=== PATIENT | male | born 1970 | race Caucasian/White ===

== ENCOUNTER → 2017-02-05 | Outpatient (CLI) | payer OTHER ==
[~2017-02-05] MED LIST: ACET-1256 PO; ASPCH81X PO; ATOR-24 PO; CETI10TA84 PO; CYAN100020 PO; DIPH1TAB87 PO; FLUT0.15; FOLI1TAB7 PO; HYDR12.56 PO; WARF10TA PO
[2017-02-05 12:19] LABS: ESTIMATED AVERAGE GLUCOSE 140 mg/dl; HA1C FLAG Normal (Normal)
[2017-02-05 12:35] LABS: ALT/SGPT 31 U/L (12-78); AST/SGOT 20 U/L (15-37); BLOOD UREA NITROGEN 15 mg/dl (7-18); BUN/CREATININE RATIO 12.9 (10-20); CALCIUM 8.7 mg/dl (8.5-10.1); CARBON DIOXIDE 29 mmol/L (21-32); CHLORIDE 102 mmol/L (98-107); GLUCOSE 113 mg/dl (70-99); HDL CHOLESTEROL 41 mg/dl; POTASSIUM 3.5 mmol/L (3.5-5.1); SODIUM 139 mmol/L (136-145)
[2017-02-05 12:37] LABS: ALB/GLOB RATIO 1.3 (0.9-2); ALKALINE PHOSPHATASE 91 U/L (45-117); CHOLESTEROL 169 mg/dl (0-200); CHOLESTEROL/HDL RATIO 4.1; LDL CHOLESTEROL CALCULATED 86 mg/dl; TRIGLYCERIDES 208 mg/dl (0-150); VERY LOW DENSITY LIPOPROT CALC 42 mg/dl
== END | disposition home or self-care (01) ==
LOC: C.LABPVFM 07:29
PROVIDERS: ATTEND Family Medicine
DX: E78.5 Hyperlipidemia, unspecified (principal); D68.51 Activated protein C resistance; E72.11 Homocystinuria; R73.01 Impaired fasting glucose; I10 Essential (primary) hypertension

== ENCOUNTER → 2017-07-19 | Outpatient (CLI) | payer OTHER ==
[2017-07-19 13:25] LABS: ESTIMATED AVERAGE GLUCOSE 126 mg/dl; HA1C FLAG Normal (Normal)
== END | disposition home or self-care (01) ==
LOC: C.LABPVFM 07:15
PROVIDERS: ATTEND Family Medicine
DX: E11.9 Type 2 diabetes mellitus without complications (principal)

== ENCOUNTER 2017-08-17 06:16 | Inpatient (IN) | payer OTHER ==
[2017-08-03 08:59] VITALS: BMI 44.0
--- NOTE | 2017-08-03 09:32 | PAT Medication Instructions ---
Service Date Aug 03, 2017. Current Home Medication List Acetaminophen (Tylenol), 500 MG PO Q6H PRN for Pain Aspirin (Aspirin Chewable), 81 MG PO QAM Atorvastatin (Lipitor), 40 MG PO QAM Cetirizine (Zyrtec), 10 MG PO QAM Cyanocobalamin (Vitamin B12), 1 TAB PO QAM Diphenhydramine Hcl (Benadryl Allergy), 25 MG PO Q6H PRN for ALLERGIC REACTION Fluticasone Propionate (Nasal) (Flonase Allergy Relief), 2 SPRAYS NA QPM PRN for PRN Folic Acid (Folvite), 1 TAB PO QAM Hydrochlorothiazide (Hctz), 12.5 MG PO QAM Warfarin Sodium (Coumadin), 10 MG PO 4XWK Warfarin Sodium (Coumadin), 5 MG PO 3XWK Medication Instructions For Your Scheduled Surgery - Instructions per Coumadin clinic: Warfarin Sodium (Coumadin), 10 MG PO 4XWK Warfarin Sodium (Coumadin), 5 MG PO 3XWK - Hold the following medications the morning of surgery: Folic Acid (Folvite), 1 TAB PO QAM Hydrochlorothiazide (Hctz), 12.5 MG PO QAM Cetirizine (Zyrtec), 10 MG PO QAM Cyanocobalamin (Vitamin B12), 1 TAB PO QAM Diphenhydramine Hcl (Benadryl Allergy), 25 MG PO Q6H PRN for ALLERGIC REACTION - Take the following medications the morning of surgery with a sip of water OTHERWISE NOTHING TO EAT OR DRINK AFTER MIDNIGHT:: Aspirin (Aspirin Chewable), 81 MG PO QAM Atorvastatin (Lipitor), 40 MG PO QAM Acetaminophen (Tylenol), 500 MG PO Q6H PRN for Pain (may take if needed up to 4 hours prior to surgery) Fluticasone Propionate (Nasal) (Flonase Allergy Relief), 2 SPRAYS NA QPM PRN - Take the following medications as scheduled the night before surgery: Fluticasone Propionate (Nasal) (Flonase Allergy Relief), 2 SPRAYS NA QPM PRN Acetaminophen (Tylenol), 500 MG PO Q6H PRN for Pain Diphenhydramine Hcl (Benadryl Allergy), 25 MG PO Q6H PRN for ALLERGIC REACTION If you have any questions please call us at [phone] or [phone] or [phone]
--- NOTE | 2017-08-03 10:07 | DIAGNOSTIC IMAGING REPORT ---
CHEST 2 VIEWS ROUTINE CLINICAL HISTORY: PAT preoperative evaluation COMPARISON STUDY: 11/01/2015 FINDINGS: The bones soft tissues and hemidiaphragms are normal. The cardiomediastinal silhouette is normal. The lungs are clear. The pulmonary vasculature is normal. IMPRESSION: Negative chest. The above report was generated using voice recognition software. It may contain grammatical, syntax or spelling errors. Electronically signed by: Juan Colin M.D. 08/03/2017 10:06 AM Dictated Date/Time: 08/03/2017 10:05 AM
[2017-08-03 11:42] LABS: BASO % 0.3 %; BASO ABS # 0.02 K/uL (0-0.2); COMPLETE YES; EOS % 0.9 %; HEMATOCRIT 46.3 % (42-52); IG% 0.3 %; LYMPH % 16.4 %; LYMPH ABS # 1.28 K/uL (1.2-3.4); MEAN CELL VOLUME 97.9 fL (80-100); MEAN CORPUSCULAR HEMOGLOBIN 33.2 pg (25-34); MEAN CORPUSCULAR HGB CONC 33.9 g/dl (32-36); MONO % 6.1 %; PLATELET COUNT 215 K/uL (130-400); RED BLOOD COUNT 4.73 M/uL (4.7-6.1); WHITE BLOOD COUNT 7.81 K/uL (4.8-10.8)
[2017-08-03 11:48] LABS: BLOOD UREA NITROGEN 22 mg/dl (7-18); BUN/CREATININE RATIO 17.8 (10-20); CALCIUM 8.5 mg/dl (8.5-10.1); CARBON DIOXIDE 29 mmol/L (21-32); CHLORIDE 105 mmol/L (98-107); CREATININE 1.24 mg/dl (0.60-1.40); GLUCOSE 127 mg/dl (70-99); POTASSIUM 3.9 mmol/L (3.5-5.1); SODIUM 137 mmol/L (136-145)
[2017-08-03 11:49] LABS: C-REACTIVE PROTEIN < 0.29 mg/dl (0-0.29)
[2017-08-03 11:58] LABS: INR 3.7 (0.9-1.1); PARTIAL THROMBOPLASTIN RATIO 1.8; PROTHROMBIN TIME (PATIENT) 42.1 SECONDS (9.0-12.0)
--- NOTE | 2017-08-11 09:44 | HISTORY & PHYSICAL EXAMINATION ---
DATE OF ADMISSION: 08/17/2017 CHIEF COMPLAINT: Right hip pain. HISTORY OF PRESENT ILLNESS: This 47-year-old gentleman well known to me from treatment of his left hip with arthroplasty back in 2013. He is now 3 years out and done well. This was done for avascular necrosis. He has a known history of right hip avascular necrosis as well. We have been managing this with medicines and injections over time. He really cannot take oral anti-inflammatories due to his Coumadin use. Pain has been gradually worse, particularly over the past 6-7 months. The shots have not helped much. He has got groin pain. He has difficulty walking. If he walks 1 day the next day he really pays for it. He describes groin pain, thigh pain, and knee pain. Of note, the patient has a Factor V Leiden abnormality and patent foramen ovale. He has a history of stroke and he is on Coumadin. His Coumadin is managed by the Coumadin clinic. PAST MEDICAL HISTORY: 1. Factor V Leiden abnormality. 2. Patent foramen ovale, status post a mini stroke without residual sequelae. 3. Sleep apnea. 4. Obesity with a BMI of 44. 5. Anemia. 6. Lyme disease. 7. Diabetes. PAST SURGICAL HISTORY: Include: 1. Left hip replacement done 06/30/2017. 2. Right knee arthroscopy. 3. Right knee ACL reconstruction. 4. Sinus surgery. ALLERGIES: DYES. CURRENT MEDICINES: Include: 1. Coumadin 5 mg Sunday, Sunday, Sunday and 10 mg the other 4 days. 2. Hydrochlorothiazide. 3. Cholesterol pill. 4. Vitamin B12. 5. Zyrtec. 6. Benadryl. 7. Tylenol. SOCIAL HISTORY: A 47-year-old male. He is . He does smoke. He has significant alcohol use as well and says he drinks about a half a gallon of rum per week. FAMILY HISTORY: Negative for diabetes or blood clots. REVIEW OF SYSTEMS: Significant for diabetes and Factor V Leiden abnormality and history of TIAs in the past without residual sequelae. Denies any current chest pain or shortness of breath. PHYSICAL EXAMINATION: GENERAL: Reveals a healthy, pleasant, middle-aged male. He looks to be in pretty good health. HEAD, EYES, EARS, NOSE, AND THROAT: Exam is benign. NECK: Supple. No lymphadenopathy. LUNGS: Clear to auscultation. HEART: Has a regular rate and rhythm. ABDOMEN: Soft, nontender and nondistended. EXTREMITY EXAMINATION: Grossly neurovascularly intact except as follows: Examination of the right hip and leg reveals the patient walks with a slightly antalgic gait. Leg lengths clinically appear pretty equal. He does have pain with any type of hip motion. He can internally rotate to about 10 degrees, external rotation 25 degrees. This causes him pain. Negative straight leg raise. X-RAYS: X-rays of the right hip were reviewed. It shows avascular necrosis of his femoral head. He does have some collapse of the femoral head. Joint space is still pretty well maintained. Bone density looks good. He does have subchondral fracture. ASSESSMENT: A 47-year-old gentleman 3 years out from left total hip replacement with right hip pain and discomfort secondary to AVN. His disease has progressed and it is limiting his activities. PLAN: We talked about treatment. He would like to have his right hip replaced. We will take her to the right total hip replacement. The risks and benefits of this procedure were explained to the patient including but not limited to DVT, PE, , infection, neurological injury, vascular injury, bleeding problem, pain, limited range of motion, stiffness of motion relieve symptoms, incomplete relief of symptoms, need for further surgery in the future, fracture, leg length inequality, nerve palsy, dislocation, etc. The patient understands and desires to proceed. Informed consent was obtained. His Coumadin is going to be managed by the Coumadin clinic. He knows to stop his Coumadin 5 days preop and the Lovenox 24 hours preop. We will likely start him on prophylactic dose of Lovenox 24 hours postoperatively and start him on Coumadin right away with a 15 mg bolus as recommended by the Coumadin clinic. He will need stat PT and INR the morning of surgery. He may need DT prophylaxis due to his significant alcohol intake. He may need a nicotine patch as well. He will plan to be discharged to home. His can help him along with home health.
[2017-08-17] VITALS (11 sets, daily range): BP systolic 103–126; BP diastolic 70–85; PULSE 68–79; TEMP 36.4–37.5; O2SAT 94–100; Ht 180.3 cm; Wt 143.0 kg
[~2017-08-17] VITALS: Ht 180.3 cm; Wt 143.0 kg
[~2017-08-17 06:16] MED LIST changes: +ACETAMINOPHEN 500 MG TAB PO SCH; +CEFAZOLIN 3000MG IV PUSH 15 ML IV SCH; +FAMOTIDINE 20 MG TAB PO SCH; -FOLI1TAB7 PO; +FOLI1TAB8 PO; +LACTATED RINGER'S 1000ML 1,000 ML IV SCH; +LACTATED RINGER'S 1000ML 500 ML IV ONE; +LACTATED RINGER'S 1000ML IV SCH; +METOCLOPRAMIDE HCL 10 MG TAB PO SCH; +SCOPOLAMINE 1.5 MG TDSY TD SCH; +TRANEXAMIC ACID INJ 1,000 MG in SYRINGE 0 ML IV SCH
[2017-08-17] MEDS ORDERED: BUPIVACAINE 0.5 % 5 MG/1 ML PF 10ML VIAL ONE (06:38)
[2017-08-17] MEDS ORDERED: LVNIS150 (06:42)
--- NOTE | 2017-08-17 06:42 | History & Physical Bridge Note ---
H&P Re-Evaluation Bridge Note: I have examined the patient, reviewed the History & Physical and in the interval since the performance of the History & Physical I have noted the following changes of clinical significance: No changes noted
[2017-08-17] MEDS ORDERED: GABAPENTIN 300 MG CAP PO ONE (07:07)
[2017-08-17 07:14] LABS: PROTHROMBIN TIME (PATIENT) 10.3 SECONDS (9.0-12.0)
[2017-08-17] MEDS ORDERED: MIDAZOLAM HCL 1 MG/ML 2ML VIAL ONE ×3 (07:59→10:19)
[2017-08-17] MEDS ORDERED: MORPHINE SULFATE PF 2MG/2ML SYR ONE (08:30)
[2017-08-17] MEDS ORDERED: BACITRACIN 50000 UNIT VIAL ONE (08:47)
[2017-08-17] MEDS ORDERED: BUPIVACAINE/EPINEPHRINE 0.5% MPF 1:200,000 30 ML VIAL ONE (08:47)
[2017-08-17] MEDS ORDERED: FENTANYL CITRATE INJ 50 MCG/1 ML 2 ML VIAL ONE (08:49)
[2017-08-17] MEDS ORDERED: SODIUM CHLORIDE 0.9% 1000ML 1,000 ML IV PRN (09:21)
[2017-08-17] MEDS ORDERED: LACTATED RINGER'S 1000ML 500 ML IV PRN (09:21)
[2017-08-17] MEDS ORDERED: NALOXONE HCL INJ 1 MG in SODIUM CHLORIDE 0.9% 1000ML 1,000 ML IV PRN (09:21)
[2017-08-17] MEDS ORDERED: NALOXONE HCL INJ 0.08 MG in SYRINGE 1.8 ML IV PRN (09:21)
[2017-08-17] MEDS ORDERED: ONDANSETRON INJ 2 MG/ML 2 ML VIAL IV PRN (09:30)
[2017-08-17] MEDS ORDERED: KETOROLAC TROMETHAMINE 30 MG/ML VIAL IV. PRN (09:30)
[2017-08-17] MEDS ORDERED: EpHEDrine SULFATE INJ 50 MG/ML AMP IV PRN (09:30)
[2017-08-17] MEDS ORDERED: MoRPHine SULFATE 2 MG/ML CARP IV PRN (09:30)
[2017-08-17] MEDS ORDERED: DiphenhydrAMINE HCL 50 MG/ML VIAL IV PRN (09:30)
[2017-08-17] MEDS ORDERED: NO NARCOTICS OR SEDATIVES SCH (09:30)
[2017-08-17] MEDS ORDERED: NALBUPHINE HCL INJ 10 MG/ML AMP IV PRN (09:30)
[2017-08-17] MEDS ORDERED: MoRPHine SULFATE PF 1 MG/ML 10 ML AMP/VIAL EPI PRN (09:30)
[2017-08-17] MEDS ORDERED: NALOXONE HCL 0.4 MG/1 ML VIAL/CARP IV PRN (09:30)
[2017-08-17] MEDS ORDERED: ONDANSETRON INJ 2 MG/ML 2 ML VIAL ONE (10:02)
[2017-08-17] MEDS ORDERED: PROPOFOL IV EMULSION 10 MG/ML 20 ML VIAL IV ONE (10:02)
[2017-08-17] MEDS ORDERED: PHENYLEPHRINE 100MCG/ML 5ML SYR ONE (10:14)
[2017-08-17] MEDS ORDERED: FLUTICASONE PROPIONATE NA SPR 16 GM BTL PRN (11:00)
[2017-08-17] MEDS ORDERED: CEFAZOLIN IV 2,000 MG in DEXTROSE 5% 50ML 50 ML IV SCH (11:00)
[2017-08-17] MEDS ORDERED: MAGNESIUM HYDROXIDE SUSP 30 ML UDC PO PRN (11:00)
[2017-08-17] MEDS ORDERED: SILVER SULFADIAZINE 1% CR 50 GM JAR EXT PRN (11:00)
[2017-08-17] MEDS ORDERED: TAMSULOSIN HCL 0.4 MG CAP PO PRN (11:00)
[2017-08-17] MEDS ORDERED: [UNRECOGNIZED DRUG - REMARK] PO PRN (11:00)
[2017-08-17] MEDS ORDERED: ALUMINUM/MAGNESIUM/SIMETH (MAALOX MAX) 30 ML UDC PO PRN (11:00)
[2017-08-17] MEDS ORDERED: BISACODYL 10 MG SUPP PR PRN (11:00)
[2017-08-17] MEDS ORDERED: METOCLOPRAMIDE HCL INJ 5 MG/ML 2 ML VIAL IV PRN (11:00)
--- NOTE | 2017-08-17 11:00 | [facility] Post Operative Brief Note ---
Immediate Operative Summary Operative Date Aug 17, 2017. Pre-Operative Diagnosis Right Hip Pain Secondary to Avascular Necrosis Post-Operative Diagnosis Right Hip Pain Secondary to Avascular Necrosis Procedure(s) Performed Right Total Hip Arthroplasty--Uncemented Surgeon Dr. Paiz Automated Teller Manager Surgeon(s) BENEDICTO Shen Estimated Blood Loss 300 ml Findings Right Hip AVN Fluids (cc crystalloids) 1800 cc Specimens A. Right Femoral Head Drains None Anesthesia Spinal Complication(s) None Disposition Recovery Room / PACU
--- NOTE | 2017-08-17 11:48 | DIAGNOSTIC IMAGING REPORT ---
R PELVIS/UNILATERAL HIP 1 VIEW CLINICAL HISTORY: IN PACU - A/P PELVIS and LATERAL HIP INCLUDING ALL OF IMPLANT COMPARISON: None. DISCUSSION: Bilateral total hip arthroplasties. Good contact between prosthetic and underlying bone. Left hip arthroplasties pre-existing. No evidence for acetabular protrusion. There is no evidence for soft tissue swelling. IMPRESSION: Anatomic alignment status post total right hip arthroplasty. Pre-existing total left hip arthroplasty. The above report was generated using voice recognition software. It may contain grammatical, syntax or spelling errors. Electronically signed by: Juan Colin M.D. 08/17/2017 11:47 AM Dictated Date/Time: 08/17/2017 11:46 AM
--- NOTE | 2017-08-17 12:07 | Anesthesiology Progress Note ---
Anesthesia Post Op Note Date & Time Aug 17, 2017 at 12:07 Vital Signs Pain Intensity: 0 Vital Signs Past 12 Hours Date Time Temp Pulse Resp B/P (MAP) Pulse Ox O2 Delivery O2 Flow Rate FiO2 08/17/17 11:47 36.8 08/17/17 11:45 73 13 98 08/17/17 11:45 75 13 08/17/17 11:42 118/68 08/17/17 11:40 81 14 97 08/17/17 11:40 78 14 08/17/17 11:37 120/68 08/17/17 11:35 65 14 08/17/17 11:35 65 14 99 08/17/17 11:31 113/69 08/17/17 11:30 69 21 08/17/17 11:30 70 21 98 08/17/17 11:26 120/61 08/17/17 11:25 74 21 98 08/17/17 11:25 77 21 08/17/17 11:21 117/78 08/17/17 11:20 68 14 08/17/17 11:20 67 14 98 08/17/17 11:16 111/69 08/17/17 11:15 71 16 08/17/17 11:15 70 16 98 08/17/17 11:11 117/72 08/17/17 11:10 78 19 08/17/17 11:10 76 19 99 08/17/17 11:07 117/68 08/17/17 11:05 79 16 08/17/17 11:05 80 16 97 08/17/17 11:01 121/76 08/17/17 11:00 80 16 94 08/17/17 11:00 81 16 08/17/17 11:00 36.8 80 16 121/76 95 Nasal Cannula 3 08/17/17 06:45 94 Room Air Notes Mental Status: alert / awake / arousable, participated in evaluation Pt Amnestic to Procedure: Yes Nausea / Vomiting: adequately controlled Pain: adequately controlled Airway Patency, RR, SpO2: stable & adequate BP & HR: stable & adequate Hydration State: stable & adequate Neuraxial Anesthesia: was administered, sensory block is resolving Anesthetic Complications: no major complications apparent
--- NOTE | 2017-08-17 12:20 | OPERATIVE REPORT ---
DATE OF OPERATION: 08/17/2017 SURGEON: Dr. Juan Paiz. SOLDERER BARREL RIBS: BENEDICTO Garcia PREOPERATIVE DIAGNOSIS: Right hip avascular necrosis with secondary degenerative joint disease. POSTOPERATIVE DIAGNOSIS: Same. PROCEDURE PERFORMED: Right uncemented ceramic on highly cross-linked polyethylene total hip arthroplasty. COMPLICATIONS: None. ESTIMATED BLOOD LOSS: 300 mL. FLUID REPLACEMENT: 1800 mL crystalloid fluid replacement. ANESTHESIA: Spinal. DRAINS: None. SPECIMENS: Right femoral head sent for pathology. OPERATIVE INDICATIONS: The patient is a 47-year-old gentleman who has a history of Factor V Leiden abnormality as well as the patent foramen ovale with a history of some strokes in the past. He has a known history of avascular necrosis and underwent a left total hip replacement 3 years ago. He has done well from that. He has developed persistent and progressive pain in his right hip. He has known avascular necrosis even from the time of his previous surgery. X-rays suggested collapse of the femoral head. The patient failed conservative treatment and elected to proceed with operative treatment. OPERATIVE FINDINGS: Operative findings revealed a moderate sized joint effusion. The articular surface looked fairly well preserved. There was one area where it looked like there was some collapse of the femoral head, although not obvious. There were some anterior osteophytes off the acetabulum. Moderate synovitis. OPERATIVE IMPLANTS: Operative implants consisted of: 1. Biomet G7 size 58-mm acetabular shell. 2. A 6.5 cancellous acetabular screws, 1 at 25 mm in length, 1 at 35 mm in length. 3. An apex hole eliminator. 4. Highly cross-linked polyethylene liner with a 58 mm outer diameter, 36 mm inner diameter with a saravia placed inferior and posterior. 5. A DePuy size 15 small AML femoral stem. 6. A +8.5/36 mm ceramic articular ball. OPERATIVE PROCEDURE: The patient was taken to the operating room, identified and placed on the operating table in supine position. All contact areas were appropriately padded. IV antibiotics were provided by anesthesia team. A spinal anesthetic had been implemented in the holding area. Brown catheter was placed in sterile fashion. The patient was then placed in the left lateral decubitus position. An axillary roll was placed. Stlberg hip positioner was used for positioning. All contact areas were meticulously padded and the right hip and leg were then prepped and draped in the usual sterile fashion. A posterolateral approach to the right hip was then performed through a curvilinear incision centered over the greater trochanter. Sharp dissection was carried through the subcutaneous tissue down to the level of the IT band and gluteal fascia. The IT band and gluteal fascia were incised longitudinally in line with skin incision. The underlying greater trochanteric bursa was excised. The piriformis and external rotators and the posterior capsule were then taken off the posterior aspect of the hip in a single layer. Great care was taken throughout the procedure to protect the sciatic nerve at all times. Hip was internally rotated and dislocated. Femoral neck osteotomy cut was made, final cut about 17 mm above the lesser trochanter. Femoral head was removed and sent for pathology. The femur was retracted anteriorly. Attention was then drawn to the acetabulum. The acetabulum labrum was excised. The pulvinar fat was excised. I used a curette to curette out some of the cartilage. Sequential reaming of the acetabulum was then performed beginning with a size 51 and progressing up to 57. A 58 mm Biomet G7 acetabular shell was then placed in about 40 degrees of lateral opening and 20 degrees of anteversion. I really worked hard to try and get this in an acceptable position due to his large size. It was fixed with two 6.5 cancellous acetabular screws. An anterior osteophyte was removed. A trial liner was placed. Attention was then drawn to the femur. The proximal femur was entered with a cookie cutter followed by canal finder and lateralizing reamer. Sequential reaming of the femur was then performed beginning with a size 10 and progressing up to good chatter at 14.5. I broached beginning with a size 12 small and progressing up to a 15 small. We got good metaphyseal fit. We then trialed the hip. The hip was fully stable in full extension and external rotation, flexion to 90 degrees, internal rotation to about 40 degrees. It was most unstable in terminal flexion, and therefore I did place a saravia very inferior and posterior to maximize stability in flexion. I elected to use a +8.5 head to maximize soft tissue tension and equalize leg lengths. We placed these implants. All trial implants were removed. An apex hole eliminator was placed. Highly cross-linked polyethylene liner with a saravia placed inferior and posterior was placed. A 15 small stature AML femoral stem was placed. A +8.5/36 mm ceramic articular ball was placed. Hip was located and once again found to be stable. Attention was then drawn toward closing. The wound was irrigated with copious amounts of pulsatile lavage solution. I did inject locally with 60 mL of 0.5% Marcaine with epinephrine. The posterior capsule and external rotators were repaired as a single layer with #2 Ti-Cron suture through drill holes in the posterior trochanter with #2 Ti-Cron suture. The IT band and gluteal fascia was then closed with #1 PDS suture in running fashion. The subcutaneous tissues were then closed with 2 layers, the deep layer #2 Vicryl suture and the subcutaneous tissue with 2-0 Dexon suture in a buried interrupted fashion. Skin was closed skin lisy. Leg was then cleaned and dried and a sterile dressing of Xeroform, 4 x 4, ABD pad and foam tape was applied. The patient then transferred to the recovery room in stable condition. The patient tolerated the procedure without complications. All needle and sponge counts were correct at the end of operation. I attest to the content of the Intraoperative Record and any orders documented therein. Any exception s are noted below.
[2017-08-17] MEDS ORDERED: GLUCOSE 40% GEL 15 GM TUBE PO PRN (13:15)
[2017-08-17] MEDS ORDERED: DEXTROSE 50% 50 ML SYR IV PRN (13:15)
[2017-08-17] MEDS ORDERED: GLUCAGON FOR INJ 1 MG VIAL SQ PRN (13:15)
[2017-08-17] MEDS ORDERED: GLUCOSE 10 TABS/TUBE PO PRN (13:15)
[2017-08-17] MEDS: FERROUS GLUCONATE 324 MG TAB PO SCH ×3 (13:42→17:30)
[2017-08-17] MEDS: SODIUM CHLORIDE 0.9% 1000ML 1,000 ML IV SCH ×2 (13:43→18:41)
[2017-08-17] MEDS: ACETAMINOPHEN 500 MG TAB PO SCH ×2 (13:43→21:31)
[2017-08-17] MEDS: NICOTINE 14 MG/24 HR TDSY TD SCH (13:46)
[2017-08-17] MEDS: CHECK SCOPOLAMINE PATCH PLACEMENT SCH (15:50)
[2017-08-17] MEDS ORDERED: WARFARIN SOD 10 MG TAB PO ONE (16:00)
--- NOTE | 2017-08-17 16:29 | PROGRESS NOTE ---
DATE: 08/17/2017 SUBJECTIVE: A 47-year-old male postop from a right total hip replacement. He is doing well. Not having much pain. No chest pain or shortness of breath. Not feeling dizzy or lightheaded. OBJECTIVE: VITAL SIGNS: Temperature is 36.4. Vital signs stable. GENERAL: Physical examination reveals a pleasant middle-aged male. He is sitting up with legs dangling over the edge of the bed and looks quite comfortable. LUNGS: Clear to auscultation. HEART: Regular rate and rhythm. ABDOMEN: Soft, nontender, and nondistended. EXTREMITIES: Grossly neurovascularly intact except as follows: Examination of the right hip and leg reveals the dressing to be clean, dry and intact. Hip is located. He can dorsiflex and plantarflex his foot appropriately. He is neurologically intact. X-RAYS: X-rays of the right hip from recovery room were reviewed. It shows a right uncemented total hip arthroplasty. Components looked to be in good position. No signs of problems. ASSESSMENT: A 47-year-old gentleman postop from a right hip replacement, doing pretty well. Pain is controlled. Hip is located. He is neurologically intact. PLAN: 1. DVT prophylaxis including thigh-high TEDs, SCDs, and we will start him back on his Coumadin tonight. We will start him on prophylactic dose of Lovenox 24 hours postoperatively until he is therapeutic on his Coumadin. 2. PT/OT. Weightbear as tolerated. Right total hip protocol. 3. Pain control. Doing well with current pain regimen. 4. IV antibiotics x24 hours. 5. Disposition: Plan to discharge to home likely with some home health once adequately recovered. NIKI
[2017-08-17] MEDS ORDERED: NURSING VERBAL MED ORDER ONE (16:45)
[2017-08-17] MEDS: INSULIN HUMAN REGULAR SC SCH ×2 (17:34→21:34)
[2017-08-17] MEDS: CEFAZOLIN IV 2,000 MG in SYRINGE 0 ML IV SCH (18:16)
[2017-08-17] MEDS: PREGABALIN 75 MG CAP PO SCH (20:18)
[2017-08-17] MEDS: DOCUSATE SODIUM 100 MG CAP PO SCH (20:19)
[2017-08-17] MEDS: SENNA 8.6 MG TAB PO SCH (20:19)
[2017-08-18] VITALS (7 sets, daily range): BP systolic 104–121; BP diastolic 69–75; PULSE 63–85; TEMP 37.1–37.6; O2SAT 95–97
[2017-08-18] MEDS: CHECK SCOPOLAMINE PATCH PLACEMENT SCH ×4 (00:15→23:05)
[2017-08-18] MEDS: SODIUM CHLORIDE 0.9% 1000ML 1,000 ML IV SCH (01:29)
[2017-08-18] MEDS: CEFAZOLIN IV 2,000 MG in SYRINGE 0 ML IV SCH (01:29)
[2017-08-18] MEDS ORDERED: MoRPHine SULFATE 2 MG/ML CARP IV PRN (02:00)
[2017-08-18] MEDS ORDERED: ZOLPIDEM TARTRATE 5 MG TAB PO PRN (02:00)
[2017-08-18] MEDS ORDERED: DC INTRASPINAL MORPHINE ONE (02:00)
[2017-08-18] MEDS ORDERED: ONDANSETRON INJ 2 MG/ML 2 ML VIAL IV PRN (02:00)
[2017-08-18] MEDS ORDERED: DiphenhydrAMINE HCL 50 MG/ML VIAL IV PRN (02:00)
[2017-08-18] MEDS: OXYCODONE HCL IR 5 MG TAB (IMMEDIATE RELEASE) PO PRN ×2 (05:55→20:52)
[2017-08-18] MEDS: ACETAMINOPHEN 500 MG TAB PO SCH ×4 (05:55→23:07)
[2017-08-18] MEDS: KETOROLAC TROMETHAMINE 30 MG/ML VIAL IV. SCH ×4 (05:58→23:09)
[2017-08-18] MEDS ORDERED: NURSING VERBAL MED ORDER ONE (07:45)
[2017-08-18 07:53] LABS: BASO % 0.3 %; BASO ABS # 0.02 K/uL (0-0.2); COMPLETE YES; EOS % 2.3 %; HEMATOCRIT 35.1 % (42-52); IG% 0.4 %; LYMPH % 13.5 %; LYMPH ABS # 1.06 K/uL (1.2-3.4); MEAN CELL VOLUME 98.3 fL (80-100); MEAN CORPUSCULAR HEMOGLOBIN 32.2 pg (25-34); MEAN CORPUSCULAR HGB CONC 32.8 g/dl (32-36); MEAN PLATELET VOLUME 10.5 fL (7.4-10.4); MONO % 15.9 %; NEUT % 67.6 %; PLATELET COUNT 141 K/uL (130-400); RED BLOOD COUNT 3.57 M/uL (4.7-6.1); WHITE BLOOD COUNT 7.88 K/uL (4.8-10.8)
--- NOTE | 2017-08-18 07:53 | PROGRESS NOTE ---
DATE: 08/18/2017 SUBJECTIVE: A 47-year-old gentleman postop day 1 from a right total hip replacement done for AVN. He is doing well. Pain is controlled. No chest pain or shortness of breath. Not feeling dizzy or lightheaded. OBJECTIVE: VITAL SIGNS: Temperature 37.1. Vital signs stable. PHYSICAL EXAMINATION: GENERAL: Reveals a healthy, pleasant, middle-aged male. He is sitting up in bed and looks pretty comfortable. LUNGS: Clear to auscultation. HEART: Regular rate and rhythm. ABDOMEN: Soft, nontender, nondistended. EXTREMITIES: Grossly neurovascularly intact except as follows: Examination of the right hip and leg reveals the leg to be well aligned. Dressing is clean, dry and intact. Thigh is soft and supple. Hip is located. He is neurologically intact. PLAN: 1. DVT prophylaxis including thigh-high TEDs, SCDs, and Coumadin. He will get 15 mg of Coumadin today. We will start him on a prophylactic dose of Lovenox until his Coumadin is more therapeutic. 2. PT/OT. Weight bear as tolerated. Right total hip protocol. 3. Pain control, doing pretty well with current pain regimen. 4. Disposition: Plan to discharge to home with some home health once adequately recovered.
[2017-08-18 07:57] LABS: PROTHROMBIN TIME (PATIENT) 10.9 SECONDS (9.0-12.0)
[2017-08-18] MEDS: CETIRIZINE HCL 10 MG TAB PO SCH (08:27)
[2017-08-18] MEDS: NICOTINE 14 MG/24 HR TDSY TD SCH (08:27)
[2017-08-18] MEDS: DOCUSATE SODIUM 100 MG CAP PO SCH ×2 (08:27→20:48)
[2017-08-18] MEDS: MULTIVITAMIN TAB PO SCH (08:27)
[2017-08-18] MEDS: ASPIRIN 81 MG ECTAB PO SCH (08:27)
[2017-08-18] MEDS: CYANOCOBALAMIN 500 MCG TAB (VIT B-12) PO SCH (08:27)
[2017-08-18] MEDS: FERROUS GLUCONATE 324 MG TAB PO SCH ×3 (08:27→18:06)
[2017-08-18] MEDS: ATORVASTATIN 40 MG TAB PO SCH (08:27)
[2017-08-18] MEDS: HYDROCHLOROTHIAZIDE 25 MG TAB PO SCH (08:29)
[2017-08-18 08:31] LABS: BUN/CREATININE RATIO 14.2 (10-20); CALCIUM 7.7 mg/dl (8.5-10.1); CREATININE 1.07 mg/dl (0.60-1.40); POTASSIUM 3.7 mmol/L (3.5-5.1)
[2017-08-18] MEDS: PREGABALIN 75 MG CAP PO SCH ×2 (08:33→20:48)
[2017-08-18] MEDS: INSULIN HUMAN REGULAR SC SCH ×4 (08:34→20:47)
[2017-08-18] MEDS: PANTOprazole SOD 40 MG TAB PO SCH (09:07)
[2017-08-18] MEDS: ENOXAPARIN 30 MG/0.3 ML SYR SQ SCH ×2 (12:41→23:09)
[2017-08-18] MEDS ORDERED: WARFARIN SOD 10 MG TAB PO ONE ×2 (16:00)
[2017-08-18] MEDS ORDERED: RXC5 PO (20:34)
[2017-08-18] MEDS ORDERED: ACET-24 PO (20:34)
--- NOTE | 2017-08-18 20:38 | Discharge Instructions ---
Discharge Instructions Date of Service Aug 18, 2017. Admission Reason for Admission: Right Hip Degenerative Joint Disease Discharge Discharge Diagnosis / Problem: Right Hip Replacement Discharge Goals Goal(s): Decrease discomfort, Improve function, Increase independence, Improve disease control, Therapeutic intervention Activity Recommendations Activity Limitations: per Instructions/Follow-up section (Total Hip Precautions ) Weightbearing Status: Right weightbearing . Instructions / Follow-Up Instructions / Follow-Up ACTIVITY RECOMMENDATIONS: Physical Therapy: * Aggressive physical therapy is not usually needed. You will learn to take care of yourself safely and walk. * Follow the "Hip Precautions Instructions." * In some cases, the social security benefits interviewer at the hospital will arrange to have a therapist come to your house for the first couple of weeks to help you learn these skills. * You need to practice on your own or with the help of a family member as needed. * When you learn these skills, most of the therapy can be done on your own. Home Exercise: * You were shown a series of exercises in the hospital. Do these exercises three to four times each day including the exercises you were shown in physical therapy. Walking: * Get up and walk several times each day. For the first four weeks, try not to stand or walk for more than one hour at a time. If you do stand or walk for more than one hour, you will not hurt anything, but your leg will likely swell. * As you feel comfortable, you may change from the walker or crutches to a cane and then to independent walking. MEDICATIONS: New Medicine: * You will likely be taking one or more of these medicines: 1. Oxycodone - Take, as directed, when you need it, every four to six hours to control your pain. 2. Coumadin - Thins your blood to lessen the chance of forming a blood clot. * The most common side effects of pain medicine and iron are nausea and constipation. If nausea or constipation is too much of a problem or if you have any questions about your new medicines or doses, call [facility] at . We will try to help you manage these issues. VERY IMPORTANT TO READ AND REVIEW" Pain: * The immediate post-operative period after hip replacement surgery is often quite painful. * You are given a prescription for pain medicine. You should take it, as directed, when you need it, especially before physical therapy and before going to bed. Pain that interferes with sleep is very common and can last several months. * You will likely need pain medicine for the first two to four weeks. It will not stop all of the pain. The pain will lessen and as you feel better, you may change to milder pain medicine such as Tylenol. * The most common side effects of pain medicine are nausea and constipation, so don't take more than you need. SPECIAL CARE INSTRUCTIONS: TEDs/Elastic Stockings: * The white elastic stockings help limit swelling and prevent blood clots from forming in your legs. The more you wear them, the more they work. * Wear them for six weeks. Prevention of Infection: * Take antibiotics one hour before any dental cleaning, dental work, urological procedure, gastrointestinal procedure or any invasive surgery in order to prevent your new joint from getting infected. * You may get the antibiotics from the doctor performing the procedure or you may call our office at before and we will call in a prescription to the pharmacy of your choice. Things to Watch For: * Drainage from the incision site that occurs more than one week after your surgery. * Severely increased leg pain or swelling. * Increased redness at the incision site. * Fever above 102 degrees Fahrenheit. * Unusual chest pain or shortness of breath. * Unusual pain or burning with urination. Call [facility] at with any of the above problems or if you have any questions about your medicines or recovery. FOLLOW UP VISIT: Make an appointment to see your doctor for approximately two weeks after surgery for a progress check and staple removal by calling the office at . Current Hospital Diet Patient's current hospital diet: Diabetes Type 2 Diet Discharge Diet Recommended Diet: Diabetes Type 2 Diet Procedures Procedures Performed: Right Total Hip Arthroplasty--Uncemented Pending Studies Studies pending at discharge: no Laboratory Results Hemoglobin A1c Test 07/19/17 07:30 Range/Units Estimated Average Glucose 126 mg/dl Hemoglobin A1c 6.0 H 4.5-5.6 % Medical Emergencies . Who to Call and When: Medical Emergencies: If at any time you feel your situation is an emergency, please call 911 immediately. . Non-Emergent Contact Non-Emergency issues call your: Surgeon . "Provider Documentation" section prepared by Juan Paiz. . VTE Core Measure Inpt VTE Proph given/why not?: Warfarin (Coumadin), Chanda Qiu, SCD's
[2017-08-18] MEDS: SENNA 8.6 MG TAB PO SCH (20:48)
[2017-08-19 06:00] VITALS: TEMP 37.1
[2017-08-19 07:05] LABS: INR 1.4 (0.9-1.1); PROTHROMBIN TIME (PATIENT) 14.2 SECONDS (9.0-12.0)
[2017-08-19 07:15] VITALS: BP 133/77; PULSE 72; TEMP 37.4; O2SAT 96
[2017-08-19] MEDS: CHECK SCOPOLAMINE PATCH PLACEMENT SCH (07:46)
[2017-08-19 08:00] VITALS: BP 133/77; PULSE 72; TEMP 37.4; O2SAT 96
[2017-08-19] MEDS: INSULIN HUMAN REGULAR SC SCH (08:00)
[2017-08-19] MEDS: NICOTINE 14 MG/24 HR TDSY TD SCH (08:12)
[2017-08-19] MEDS: CETIRIZINE HCL 10 MG TAB PO SCH (08:12)
[2017-08-19] MEDS: ASPIRIN 81 MG ECTAB PO SCH (08:13)
[2017-08-19] MEDS: MULTIVITAMIN TAB PO SCH (08:13)
[2017-08-19] MEDS: PREGABALIN 75 MG CAP PO SCH (08:13)
[2017-08-19] MEDS: CYANOCOBALAMIN 500 MCG TAB (VIT B-12) PO SCH (08:13)
[2017-08-19] MEDS: PANTOprazole SOD 40 MG TAB PO SCH (08:13)
[2017-08-19] MEDS: DOCUSATE SODIUM 100 MG CAP PO SCH (08:13)
[2017-08-19] MEDS: ATORVASTATIN 40 MG TAB PO SCH (08:13)
[2017-08-19] MEDS: FERROUS GLUCONATE 324 MG TAB PO SCH (08:13)
[2017-08-19] MEDS: HYDROCHLOROTHIAZIDE 25 MG TAB PO SCH (08:14)
[2017-08-19] MEDS: OXYCODONE HCL IR 5 MG TAB (IMMEDIATE RELEASE) PO PRN (08:14)
--- NOTE | 2017-08-19 08:29 | PROGRESS NOTE ---
DATE: 08/19/2017 SUBJECTIVE: A 47-year-old gentleman with underlying factor V abnormality and patent foramen ovale, postop day 2 from right total hip replacement. He is doing well. Pain is controlled. No chest pain or shortness of breath. Not feeling dizzy or lightheaded. OBJECTIVE: VITAL SIGNS: Temperature 37.4. Vital signs stable. GENERAL: Reveals a pleasant, middle-aged male. He is lying in bed and looks calm and quite comfortable. EXTREMITIES: Examination of the right hip and leg reveals the leg lengths to be equal. The dressing is clean, dry, and intact. No significant drainage. Thigh is soft and supple. He can dorsiflex and plantarflex his foot appropriately. LABORATORY DATA: INR is 1.4. ASSESSMENT: A 47-year-old gentleman, postop day 2 from a right total hip replacement, doing pretty well. Pain is controlled. Hips located. He is neurologically intact. PLAN: 1. DVT prophylaxis include thigh-high TEDs, SCDs, and Coumadin. He is on prophylactic Lovenox doses today and should be good on his INR tomorrow. 2. PT/OT. Weight bear as tolerated. Right total hip protocol. 3. Pain control, doing well with current pain regimen, 4. Disposition: Plan to discharge to home with some home health later today. NIKI
[2017-08-19] MEDS ORDERED: WARFARIN SOD 10 MG TAB PO ONE (16:00)
== END 2017-08-19 10:27 | disposition home health service (06) | DRG 470 ==
LOC: C.ACU 06:16 → C.3E 11:06 → ENRESERV 11:26
PROVIDERS: ADMIT Orthopaedic Surgery Sports Medicine; ATTEND Orthopaedic Surgery Sports Medicine
PROC: 0SR904A Replacement of Right Hip Joint with Ceramic on Polyethylene Synthetic Substitute, Uncemented, Open Approach (ICD-10-PCS; principal; 2017-08-17 08:50)
DX: M87.351 Other secondary osteonecrosis, right femur (principal); D68.51 Activated protein C resistance; Q21.1 Atrial septal defect; Z68.41 Body mass index [BMI] 40.0-44.9, adult; M16.7 Other unilateral secondary osteoarthritis of hip; E11.9 Type 2 diabetes mellitus without complications; E66.9 Obesity, unspecified; F17.200 Nicotine dependence, unspecified, uncomplicated; Z79.899 Other long term (current) drug therapy; Z79.01 Long term (current) use of anticoagulants; Z96.642 Presence of left artificial hip joint; Z86.73 Personal history of transient ischemic attack (TIA), and cerebral infarction without residual deficits; Z72.89 Other problems related to lifestyle

== ENCOUNTER → 2018-01-21 | Outpatient (CLI) | payer OTHER ==
[~2018-01-21] MED LIST changes: -ACETAMINOPHEN 500 MG TAB PO SCH; -CEFAZOLIN 3000MG IV PUSH 15 ML IV SCH; -FAMOTIDINE 20 MG TAB PO SCH; -LACTATED RINGER'S 1000ML 1,000 ML IV SCH; -LACTATED RINGER'S 1000ML 500 ML IV ONE; -LACTATED RINGER'S 1000ML IV SCH; -METOCLOPRAMIDE HCL 10 MG TAB PO SCH; -SCOPOLAMINE 1.5 MG TDSY TD SCH; -TRANEXAMIC ACID INJ 1,000 MG in SYRINGE 0 ML IV SCH
[2018-01-21 13:58] LABS: HEMOGLOBIN A1C 6.5 % (4.5-5.6)
[2018-01-21 14:07] LABS: ALBUMIN 3.8 gm/dl (3.4-5.0); ALKALINE PHOSPHATASE 89 U/L (45-117); ALT/SGPT 29 U/L (12-78); AST/SGOT 24 U/L (15-37); BLOOD UREA NITROGEN 20 mg/dl (7-18); CALCIUM 8.6 mg/dl (8.5-10.1); CARBON DIOXIDE 25 mmol/L (21-32); CHOLESTEROL 178 mg/dl (0-200); CREATININE 1.18 mg/dl (0.60-1.40); GLUCOSE 118 mg/dl (70-99); LDL CHOLESTEROL CALCULATED 89 mg/dl; POTASSIUM 3.4 mmol/L (3.5-5.1); SODIUM 133 mmol/L (136-145); TOTAL PROTEIN 7.2 gm/dl (6.4-8.2)
== END | disposition home or self-care (01) ==
LOC: C.LABPVFM 07:21
PROVIDERS: ATTEND Family Medicine
DX: Q21.1 Atrial septal defect (principal); Z86.73 Personal history of transient ischemic attack (TIA), and cerebral infarction without residual deficits; E66.01 Morbid (severe) obesity due to excess calories; E72.11 Homocystinuria; D68.51 Activated protein C resistance; E78.5 Hyperlipidemia, unspecified; I10 Essential (primary) hypertension; R73.01 Impaired fasting glucose

== ENCOUNTER 2020-07-23 06:52 | Observation (INO) ==
--- NOTE | 2020-06-22 14:45 | PAT Medication Instructions ---
Medication Instructions Date of Service June 22, 2020 Home Medications Medication Instructions Recorded amoxicillin 500 mg tablet 2,000 mg PO ONCE #4 tab 08/22/19 warfarin 10 mg tablet See Rx Instructions PO UD 90 Days 12/08/19 #75 tab hydrochlorothiazide 25 mg tablet 25 mg PO DAILY #90 tab 06/18/20 aspirin 81 mg PO QAM cetirizine 10 mg PO QAM folic acid 1 mg PO QAM fluticasone propionate [Flonase Allergy Relief] 2 spray INTRANASAL QPM diphenhydramine HCl 25 mg PO QPM acetaminophen 1,000 mg PO Q8H PRN cholecalciferol (vitamin D3) 125 mcg (5,000 unit) capsule 5,000 units PO QAM cyanocobalamin (vitamin B-12) 1,000 mcg tablet 5,000 mcg PO QAM amoxicillin 500 mg tablet 2,000 mg PO ONCE warfarin 10 mg tablet See Rx Instructions PO UD atorvastatin 40 mg PO QAM hydrochlorothiazide 25 mg tablet 25 mg PO DAILY Continue as directed amoxicillin 500 mg tablet 2,000 mg PO ONCE (continue as directed) ASK your prescriber and surgeon warfarin 10 mg tablet See Rx Instructions PO UD DO NOT take the morning of surgery cetirizine 10 mg PO QAM folic acid 1 mg PO QAM cholecalciferol (vitamin D3) 125 mcg (5,000 unit) capsule 5,000 units PO QAM cyanocobalamin (vitamin B-12) 1,000 mcg tablet 5,000 mcg PO QAM hydrochlorothiazide 25 mg tablet 25 mg PO DAILY Take morning of surgery With a small sip of water, OTHERWISE NOTHING TO EAT OR DRINK AFTER MIDNIGHT: aspirin 81 mg PO QAM acetaminophen 1,000 mg PO Q8H PRN (okay to take up to 4 hours prior to surgery if needed) atorvastatin 40 mg PO QAM Take evening before surgery fluticasone propionate [Flonase Allergy Relief] 2 spray INTRANASAL QPM diphenhydramine HCl 25 mg PO QPM acetaminophen 1,000 mg PO Q8H PRN (if needed) Other Notes If you have any questions please call us at [phone] or [phone] or [phone] or [phone]
--- NOTE | 2020-06-24 10:47 | Anesthesiology Consultation ---
Date of Service June 24, 2020 Assessment & Plan (1) Encounter for pre-operative examination: COVID Status: As of 06/24 assessment, patient denies travel to endemic area, known exposure/sick contacts, or symptoms of COVID19. Patient instructed that they and their household members must follow strict social distancing guidelines, wear a mask in public and avoid travel for 14 days prior to surgery. Preoperative COVID19 testing to be completed prior to surgery per surgeon's ar rangements. Patient made aware to self-isolate as much as possible between COVID testing and surgery. He may have to work after having his COVID test (works at a [employer], must wear a mask), but will try to get off of work. Chart Review Chart Review: Acceptable Risk for Surgery and Patient seen in Pre Admission Testing Teaching & Discussion Instructed NPO after midnight before surgery, except medications with 15 cc of water. Medication instructions provided according to the PAT guidelines. History Surgery Operation Date: 07/23/20 10:40 Proposed Procedures p Right Total Knee Arthroplasty - Juan Paiz MD Height/Weight Height: 5 ft 11 in Weight: 138.5 kg Allergies Allergy/AdvReac Type Severity Reaction Status Date / Time warfarin AdvReac Unknown DYE Verified 06/18/20 08:27 ALLERGY. USE DYE FREE WARFARIN. NO ALLERGY TO "WARFARIN" Unclassified Drugs Allergy Unknown DYED Uncoded 06/18/20 08:27 COUMADIN-HIVES Medications Home Medications Medication Instructions Recorded Confirmed Last Taken aspirin 81 mg PO QAM #0 05/16/16 06/18/20 Unknown cetirizine 10 mg PO QAM #0 tab 05/16/16 06/18/20 Unknown folic acid 1 mg PO QAM 90 Days #90 tab 05/16/16 06/18/20 Unknown fluticasone propionate [Flonase 2 spray INTRANASAL QPM #0 10/27/16 06/18/20 Unknown Allergy Relief] diphenhydramine HCl 25 mg PO QPM #0 03/02/17 06/18/20 Unknown acetaminophen 1,000 mg PO Q8H PRN #0 tab 10/19/17 06/18/20 Unknown cholecalciferol (vitamin D3) 125 5,000 units PO QAM 11/22/18 06/18/20 Unknown mcg (5,000 unit) capsule cyanocobalamin (vitamin B-12) 5,000 mcg PO QAM #0 tab 07/18/19 06/18/20 Unknown 1,000 mcg tablet amoxicillin 500 mg tablet 2,000 mg PO ONCE #4 tab 08/22/19 06/18/20 Unknown warfarin 10 mg tablet See Rx Instructions PO UD 90 Days 12/08/19 06/18/20 Unknown #75 tab atorvastatin 40 mg PO QAM 06/17/20 06/18/20 Unknown hydrochlorothiazide 25 mg tablet 25 mg PO DAILY #90 tab 06/18/20 06/18/20 Unknown Past Medical History Medical History Atrial fibrillation On Warfarin Embolic stroke ABOUT 6 YRS AGO-"LOSS OF BALANCE"-WARFARIN DAILY-NO ISSUES SINCE Enlarged prostate HX Factor 5 Leiden mutation, heterozygous Hypertension Obesity On anticoagulant therapy Osteoarthritis PFO (patent foramen ovale) No surgical intervention. On Warfarin. Pre-diabetes PCP georgi 06/18 notes elevated A1C 6.3, rec dietary changes, will rpt lab in 3 months. Exercise / Class Metabolic Activity II 4-5 Yardwork/Stairs/Walk up hill (Denies CP or SOB with 1 FOS, just moving slowly 2/2 knee pain) Past Family History Family History Father Diabetes Cancer Mother Family history of reaction to anesthesia SLOW TO WAKE UP Denies family history of Ovarian cancer Prostate cancer Myocardial infarction Breast cancer Colorectal cancer Past Surgical History Surgical History History of colonoscopy History of hip replacement x 2=R/L History of knee surgery x 3-RIGHT History of myringotomy A CHILD History of sinus surgery Past Anesthesia History No Hx of Anesthesia Complications and No Family Hx of Anesthesia Complications (other than mother slow to wake once) History of PONV No Hx of PONV and Hx of Motion Sickness Social History Smoking Status: Current every day smoker tobacco type: cigarettes Smoking cigarettes per day: 20 CIGS A DAY X 30 YRS Do You Dip or Chew Tobacco: No (quit) Hx Alcohol Use: Yes Alcohol type: hard liquor alcohol intake frequency: a few times a week Hx Substance Use: No Review of Systems Pt denies any recent chest pain, shortness of breath, cough (other than baseline "smoker's cough"), fever, URI, or uncontrolled acid reflux. +sinus drainage, chronic, takes OTC allergy pills/Flonase. +palpitations, occ. +occ reflux, depends on diet Physical Exam Vital Signs BP: 121/80 P: 99bpm SPO2: 97% RA T: 99.1 F R: 20 Constitutional + obese ENMT Mouth: no dental restorations, no chipped teeth and no loose teeth Thyromental Distance: > or= 3.5 Finger Breadths Mallampati Class: II Neck + thick neck; neck extension not limited Respiratory normal respiratory effort Auscultation: lungs clear to auscultation bilaterally Cardiovascular Rate/Rhythm: + tachycardic (borderline); + abnormal rhythm (irreg irreg) Heart Sounds: no murmur Extremities: no edema Testing Laboratory Results PT 20.4 Seconds (9.0-12.0) H 06/24/20 11:07 INR 2.0 (0.9-1.1) H 06/24/20 11:07 APTT 39.3 Seconds (21.0-31.0) H 06/24/20 11:07 Blood Type A Positive 06/24/20 11:07 Antibody Screen NEGATIVE 06/24/20 11:07 06/18/20 WBC: 8.80 H/H: 16.5/49.5 PLATELETS: 195 SODIUM: 139 POTASSIUM: 4.0 CHLORIDE: 105 CO2: 24 BUN: 15 CREATININE: 1.02 GLUCOSE: 114 Electrocardiogram Date: 06/24/20 Findings: + AFIB @ (102bpm ) Afib with RVR and premature ventricular or aberrantly conducted complexes. Compared to 2013 EKG, afib has replaced SR, vent. rate increased by 32bpm. *Patient has known afib, being monitored by PCP and coumadin clinic for Warfarin. Pt admits to feeling anxious today, but denies SOB/lightheadedness/dizziness. Review of PCP notes shows HR usually in 70s-80s. Workload message sent to PCP for continuity of care. Chest X-Ray Date: 06/24/20 Findings: + NAD
--- NOTE | 2020-06-24 11:53 | XRay Report ---
XR chest Pre-admission PA/Lat HISTORY: 50 years-old Male pat preoperative exam. No acute chest complaints COMPARISON: Chest radiographs 08/03/2017 TECHNIQUE: PA and lateral views of the chest FINDINGS: Cardiomediastinal and hilar silhouettes are within normal limits. No pneumothorax, pleural effusion, airspace consolidation or overt pulmonary edema. Bones of the chest appear grossly intact. IMPRESSION: No acute process. ACT 112: Negative or not required by law. The above report was generated using voice recognition software. It may contain grammatical, syntax o r spelling errors. Electronically signed by: Ruiz Greco M.D. 06/24/2020 11:52 AM
--- NOTE | 2020-06-24 11:58 | Electrocardiogram Report ---
Test Reason : Blood Pressure : / mmHG Vent. Rate : 102 BPM Atrial Rate : 089 BPM P-R Int : 000 ms QRS Dur : 106 ms QT Int : 356 ms P-R-T Axes : 000 165 015 degrees QTc Int : 463 ms Atrial fibrillation with rapid ventricular response with premature ventricular or aberrantly conducte d complexes Abnormal ECG When compared with ECG of 08-MAY-2014 10:45, Atrial fibrillation has replaced Sinus rhythm HR has increased by 32 bpm Confirmed by Martin Payton ([id number]) on 06/24/2020 11:58:15 AM Referred By: Juan Paiz Confirmed By:Martin Payton
[2020-06-24 12:37] LABS: Partial Thromboplastin Ratio 1.4; Partial Thromboplastin Time 39.3 Seconds (21.0-31.0); Prothrombin Time 20.4 Seconds (9.0-12.0)
--- NOTE | 2020-07-17 10:54 | History and Physical Report ---
DATE OF ADMISSION: 07/23/2020 CHIEF COMPLAINT: Right knee pain, discomfort, swelling and instability. HISTORY OF PRESENT ILLNESS: The patient is a 50-year-old gentleman who is well known to me from previous bilateral hip replacements done for avascular necrosis. The right one was done in 2016, the left one in 2013. He has done well from his hip surgery. He also has a long history of right knee problems. He has had his right knee operated on 3 times. He had an ACL reconstruction by Dr. Kerns many years ago and then more recently a knee scope was done about 9 years ago as per patient's recollection. Over the years, he developed increased pain and discomfort in his knee. He has had injection treatment which helped initially but became less successful over time. He has got global pain. He really cannot take NSAIDs due to he is on Coumadin for some Factor V issues and thrombosis. He wears a brace, which seems to help, but does manage his pain. He would like to have his knee fixed. PAST MEDICAL HISTORY: 1. Patent foramen ovale. 2. Hypertension. 3. Elevated cholesterol. 4. History of TIA and strokes on Coumadin. 5. Factor V Leiden abnormality on Coumadin. 6. History of deep venous thrombosis, on Coumadin. 7. Obesity. 8. History of smoking. 9. Significant alcohol intake 20 drinks per week. PAST SURGICAL HISTORY: Include: 1. Right hip replacement done 08/17/2017. 2. Left hip replacement on 06/30/2014. 3. Right knee surgery x3. 4. Sinus surgery. ALLERGIES: UNSPECIFIED DYE. CURRENT MEDICINES: Include: 1. Coumadin. 2. Tylenol. 3. Baby aspirin. 4. Atorvastatin. 5. Cetirizine. 6. Vitamin D3. 7. Vitamin B12. 8. Benadryl. 9. Flonase. 10. Folic acid. 11. Hydrochlorothiazide. SOCIAL HISTORY: This 50-year-old male. He lives in [place]. He is . He does work. He does smoke as well. Pretty heavy drinker with a 20 drinks per week. FAMILY HISTORY: Noncontributory. REVIEW OF SYSTEMS: Negative for diabetes. He is on Coumadin. He does have a history of TIA, mini strokes without much in the way of residual symptoms. He also has a history of a patent foramen ovale. Also, history of DVT. Once again, he is on Coumadin. PHYSICAL EXAMINATION: GENERAL: Shows a pleasant, middle-aged male, he looks to be in reasonably good health. HEENT: Benign. NECK: Supple, no lymphadenopathy. LUNGS: Clear to auscultation. HEART: Has a regular rate and rhythm. ABDOMEN: Soft, nontender, nondistended. EXTREMITIES: Grossly neurovascularly intact except as follows. Examination of the right knee reveals the patient ambulates independently. He comes in wearing a hinged knee brace. His range of motion is about 5-120 degrees. There is no instability. Small knee effusion. He has got well-healed arthroscopic portal sites from his previous surgery. No particular pain with hip motion. X-RAYS: X-rays of the right knee reviewed. Shows advanced right knee tricompartment DJD. He has got osteophytes in all 3 compartments. He still has joint space remaining, but diffuse degenerative change. He has got chondrocalcinosis. He has evidence of ACL reconstruction with an Endobutton in place. ASSESSMENT: A 50-year-old male with a history of multiple medical comorbidities including Factor V Leiden abnormality, history of transient ischemic attacks and mini strokes and patent foramen ovale and history of deep venous thrombosis on Coumadin, obesity, elevated cholesterol, hypertension, significant alcohol intake and smoker with advanced right knee tricompartment degenerative joint disease. He has been through 3 previous operations in the past. He has failed conservative care. He would like to have his right knee replaced. He has done well from his hip surgery. PLAN: We will take him to the operating room and do right total knee replacement. The risks and benefits of this procedure were explained to the patient and include but not limited to DVT, PE, , infection, neurological injury, vascular injury, bleeding problem, pain, limited range of motion, stiffness, failure to relieve symptoms, incomplete relief of symptoms, need for further surgery in future, fracture, leg length inequality, nerve palsy, persistent pain; incomplete relief of symptoms, infection, DVT, pulmonary embolism, etc. The patient understands and desires to proceed. Informed consent was obtained. He will stop his Coumadin 5 days preop. We will need a stat PT and INR the morning of surgery. We will start him back on his Coumadin immediately postop. We will likely need some Lovenox while in the hospital. We will use DTE prophylaxis due to his alcohol use. He will likely need a patch in the hospital due to his smoking use. As far as discharge plans, he is planning to be discharged to home using [facility] home health program.
[~2020-07-23 06:52] MED LIST changes: -ACET-1256 PO; +ACETAMINOPHEN 500 MG TAB PO SCH; -ASPCH81X PO; -ATOR-24 PO; +BUPIVACAINE LIPOSOME/PF 266 MG, BUPIVACAINE/EPINEPHRINE 50 ML, SODIUM CHLORIDE 0.9% 30 ... INFIL SCH; -CETI10TA84 PO; -CYAN100020 PO; -DIPH1TAB87 PO; +FAMOTIDINE 20 MG TAB PO SCH; -FLUT0.15; -FOLI1TAB8 PO; +GABAPENTIN 900 MG DOSE PO SCH; -HYDR12.56 PO; +LR 500ML BOLUS, THEN 15ML/HR IV SCH; +LR 60ML/HR IV SCH; +METOCLOPRAMIDE HCL 10 MG TABLET PO SCH; +TRANEXAMIC ACID 1,000 MG **IV Intra-op IV SCH; -WARF10TA PO; +ceFAZolin 2000MG 2,000 MG/15 ML SYR IV SCH
[2020-07-23] MEDS ORDERED: BUPIVACAINE 0.5 % 5 MG/1 ML PF 10ML VIAL ONE (07:05)
[2020-07-23] MEDS ORDERED: MIDAZOLAM HCL 1 MG/ML 2ML VIAL ONE (07:26)
[2020-07-23] MEDS ORDERED: fentaNYL citrate 100 MCG/2 ML VIAL ONE ×2 (07:26→08:21)
[2020-07-23 07:41] LABS: INR 1.1 (0.9-1.1); Partial Thromboplastin Ratio 1.1; Partial Thromboplastin Time 30.4 Seconds (21.0-31.0); Prothrombin Time 11.4 Seconds (9.0-12.0)
[2020-07-23] MEDS ORDERED: LIDOCAINE HCL 2% 2 ML VIAL/AMP(20MG/ML) INFIL ONE (07:45)
[2020-07-23] MEDS ORDERED: ONDANSETRON INJ 2 MG/ML 2 ML VIAL ONE (07:47)
[2020-07-23] MEDS ORDERED: PROPOFOL IV EMULSION 10 MG/ML 20 ML VIAL IV ONE ×2 (07:47→11:06)
[2020-07-23] MEDS ORDERED: fentaNYL citrate 100 MCG/2 ML VIAL IV PRN (08:17)
[2020-07-23] MEDS ORDERED: ePHEDrine sulfate 50 MG/ML AMP IV PRN (08:17)
[2020-07-23] MEDS ORDERED: ONDANSETRON INJ 2 MG/ML 2 ML VIAL IV PRN ×2 (08:17→13:02)
[2020-07-23] MEDS ORDERED: ATROPINE SULFATE 0.1 MG/ML 10ML SYR IV PRN (08:17)
[2020-07-23] MEDS ORDERED: ROPIVACAINE 0.5% 5 MG/ML 30 ML VIAL ONE (08:21)
[2020-07-23] MEDS ORDERED: HYDROmorphone INJ 2 MG/ML SYR/VIAL ONE (08:24)
--- NOTE | 2020-07-23 08:52 | History & Physical Bridge Note ---
Date of Service July 23, 2020 History & Physical Bridge Note I have examined the patient, reviewed the History & Physical and in the interval since the performance of the History & Physical I have noted the following changes of clinical significance: no changes noted
[2020-07-23] MEDS ORDERED: BUPIVACAINE 0.25% 30 ML VIAL ONE (09:00)
[2020-07-23] MEDS ORDERED: EPINEPHrine INJ 1 MG/ML AMP ONE (09:00)
[2020-07-23] MEDS ORDERED: SODIUM CHLORIDE 0.9% PF 50 ML VIAL ONE (09:00)
[2020-07-23] MEDS ORDERED: BUPIVACAINE LIPOSOME 1.3% 266 MG/20 ML VIAL ONE (09:00)
[2020-07-23] MEDS ORDERED: BACITRACIN INJ 50,000 UNIT VIAL ONE (09:00)
[2020-07-23] MEDS ORDERED: VANCOMYCIN HCL 1000MG/20ML VIAL ONE (09:01)
--- NOTE | 2020-07-23 11:14 | Post Operative Brief Note ---
PG Immediate Post Op with CF Date of Surgery July 23, 2020 Pre & Post Diagnosis Operation Date: 07/23/20 08:50 Pre-Op Diagnosis: Right Knee Advanced Tricompartmental Degenerative Joint Disease Post-Op Diagnosis: Right Knee Advanced Tricompartmental Degenerative Joint Disease I identified the patient and participated in the time-out.: Yes Procedure Operation Date: 07/23/20 08:50 Actual Procedures p Right Total Knee Arthroplasty(Right) - Juan Paiz MD Surgeon Juan Paiz MD Director Of [employer] MICHAEL Kuo Estimated Blood Loss 50 Findings Consistent with Post-Op Diagnosis Fluids 1400 cc Specimens Specimen Description: A. Right Knee Bone and Tissue Anesthesia Type General Regional Complications none Disposition Disposition: Recovery Room
--- NOTE | 2020-07-23 11:46 | XRay Report ---
XR knee RT 1 or 2V routine HISTORY: 50 years-old Male Surgical Post Op right knee total joint arthroplasty COMPARISON: Knee radiographs 03/12/2020 TECHNIQUE: 2 views of the right knee FINDINGS: Right knee total joint arthroplasty and patella resurfacing. There is satisfactory alignment without acute fracture, dislocation or expected opaque foreign body. Anterior midline skin lisy are noted along with expected postsurgical soft tissue swelling and deep tissue air with surgical drainage cath eter. There is evidence of remote ACL repair. IMPRESSION: Right knee total joint arthroplasty and patella resurfacing with expected postoperative c hanges. ACT 112: Negative or not required by law. The above report was generated using voice recognition software. It may contain grammatical, syntax o r spelling errors. Electronically signed by: Ruiz Greco M.D. 07/23/2020 11:45 AM
--- NOTE | 2020-07-23 12:46 | Anesthesiology Progress Note ---
Date of Service July 23, 2020 Anesthesia Post Procedure Vital Signs Vital Signs: Temp Pulse Pulse Resp BP BP Pulse Ox 07/23/20 12:30 78 14 144/97 H 98 07/23/20 12:15 82 16 146/97 H 97 07/23/20 12:00 94 H 14 146/96 H 94 07/23/20 11:50 98.2 F 91 H 16 145/74 H 94 07/23/20 11:40 93 H 18 137/95 98 07/23/20 11:30 98.1 F 90 22 156/81 H 97 07/23/20 08:06 76 20 150/91 H 100 07/23/20 07:21 99.0 F 85 20 151/98 H 97 Transfer of Care Handoff Completed per policy Notes Mental Status: alert / awake / arousable and participated in evaluation Patient Amnestic to Procedure: Yes Nausea / Vomiting: adequately controlled Pain: adequately controlled Airway Patency, RR, SpO2: stable & adequate BP & HR: stable & adequate Hydration State: stable & adequate Anesthetic Complications: no major complications apparent and Pt Satisfied with anesthetic care
[2020-07-23] MEDS ORDERED: chlordiazePOXIDE HCl 25 MG CAP PO PRN (13:02)
[2020-07-23] MEDS ORDERED: NALOXONE HCL 0.4 MG/1 ML VIAL/CARP IV PRN (13:02)
[2020-07-23] MEDS ORDERED: TAMSULOSIN HCL 0.4 MG CAP PO PRN (13:02)
[2020-07-23] MEDS ORDERED: MAGNESIUM HYDROXIDE SUSP 30 ML UDC PO PRN (13:02)
[2020-07-23] MEDS ORDERED: bisacodyL 10 MG SUPP PR PRN (13:02)
[2020-07-23] MEDS ORDERED: ALUMINUM/MAGNESIUM SUSP 30 ML UDC PO PRN (13:02)
[2020-07-23] MEDS ORDERED: diphenhydrAMINE Capsule 25 MG CAP PO PRN (13:02)
[2020-07-23] MEDS ORDERED: HYDROmorphone INJ 0.5 MG/0.5 ML SYR IV PRN (13:02)
[2020-07-23] MEDS ORDERED: SODIUM CHLORIDE 0.9% 1000ML 1,000 ML IV SCH (13:02)
[2020-07-23] MEDS ORDERED: METOCLOPRAMIDE HCL INJ 5 MG/ML 2 ML VIAL IV PRN (13:02)
[2020-07-23] MEDS: ACETAMINOPHEN 500 MG TAB PO SCH ×2 (13:47→20:53)
[2020-07-23] MEDS: oxyCODONE HCL IR 5 MG TAB (IMMEDIATE RELEASE) PO PRN ×2 (14:38→20:52)
[2020-07-23] MEDS ORDERED: WARFARIN SOD 10 MG TAB PO ONE (16:00)
[2020-07-23] MEDS: FERROUS GLUCONATE 324 MG TAB PO SCH (17:11)
[2020-07-23] MEDS: ceFAZolin 2000MG 2,000 MG/15 ML SYR IV SCH (17:11)
[2020-07-23] MEDS: KETOROLAC 30 MG/ML VIAL IV SCH (17:11)
[2020-07-23] MEDS: ASCORBIC ACID 500 MG TAB PO SCH (17:11)
--- NOTE | 2020-07-23 17:53 | Operative Report ---
Post Operative Report Pre & Post Diagnosis Operation Date: 07/23/20 08:50 Pre-Op Diagnosis: Right Knee Advanced Tricompartmental Degenerative Joint Disease Post-Op Diagnosis: Right Knee Advanced Tricompartmental Degenerative Joint Disease I identified the patient and participated in the time-out.: Yes Procedure Operation Date: 07/23/20 08:50 Actual Procedures p Right Total Knee Arthroplasty(Right) plus removal of hardware right tibia- Juan Paiz MD Surgeon Juan Paiz MD Obstetrics Specialist MICHAEL Kuo Estimated Blood Loss 50 Findings Consistent with Post-Op Diagnosis Operative findings revealed advanced right knee tricompartment DJD. Patient had extensive erosive disease in all 3 compartments. His ACL was nonfunctioning and absent. He had a moderate-sized joint effusion. Fluids 1400 cc. Specimens Right knee sent for pathology. Drains None. Anesthesia Type General Regional Complications none Disposition Accompanied Patient To Recovery: No Disposition: Recovery Room Indications Patient is a 50-year-old male with multiple medical comorbidities has had a long history of right knee problems. He has undergone 3 previous knee operations including an ACL reconstruction with allograft. He is continue to develop persistent progressive knee pain unresponsive conservative treatment. Patient elected proceed with total knee arthroplasty. Of note, patient also has history of a hip avascular necrosis and had both hips replaced in the past. He is done well from these operations. Description of Procedure Operative implants consist of: 1. Biomet Vanguard size 72.5 right posterior stabilized femoral component. 2. Biomet size 79 tibial tray. 3. 10 mm posterior stabilized polyethylene insert 4. 31 x 8 all polypatella. The patient was taken to the operating identified and placed on the operating table supine position but all contact areas were properly padded. IV antibiotics tried by anesthesia team. And abductor canal block had provided in the holding area. A general anesthetic was employed by the anesthesia team as the patient has been taking Lovenox and did not hold his last dose as instructed. Was not felt safe to proceed with a spinal. A right thigh turn was then placed. The right lower extremities and prepped draped in usual sterile fashion. Right leg was elevated exsanguinated with use of an Esmarch and turns placed at 3 mmHg. An anterior approach to the right knee was then performed to longitudinal incision centered over the patella. Sharp dissection was carried through subcutaneous tissue down the extensor mechanism. Medial parapatellar arthrotomy incision was made. Some subperiosteal dissection was carried out medially. The fat pad was resected from each patella tendon. The lateral patellofemoral ligament was released. Patella was subluxated laterally and the knee was flexed. The osteophytes were taken off the distal femur. The ACL was absent. The PCL was released in the distal femur and the tibia subluxated anteriorly. The external tibial alignment jig was then placed in the interface the tibia and adjusted 14 mm medially. Proximal tibial cut was made to remove about 3 to 4 mm of bone from the medial side. The tibia was then sized to a size 79. I did feel like the hardware was going to be in the the way as far as the drilling for the tibia so I remove the a plastic Intrafix screw along with the sheath. This was removed without incident. I did clean the screw path to allow for cement interdigitation. Attention drawn the femur. The distal femur there with a sharp drop with intramedullary canal was suction. A right 6 degree valgus cutting guide was placed but the distal femoral cutting block was pinned in place but distal femoral cut was made to take an additional 5 mm of bone off distal femur. At the standard 3 mm cut it was still not down to the base of the notch. The femur was then sized to a size 72.5. The eighth cutting block was pinned parallel to the epicondylar axis which was 3 degrees of external rotation. The anterior cut, anterior chamfer, posterior cut, posterior chamfer cuts were made. Box cutting guide was placed in just slight lateral box cut was made. The knee was flexed. The remnants of the medial lateral menisci were excised. The osteophytes were taken off the posterior aspect the femur. A trial femoral component was placed but the tibial tray was pinned in maximum external rotation and the drill and stem punch were used to create defect in proximal tibia for tibial tray. The knee was then trialed and 10 mm insert fit was appropriate. Attention was then drawn to the patella. Patella was cleaned of all soft tissues. Patella thickness measured 25 mm in thickness was cut down to 15. Was sized to a size 31 patella. The lug holes were drilled for a 31 patella with a lateral arthrotomy. Patella button was placed. Knee was taken through range of motion and the patella tracked nicely with no thumbs test. Attention drawn to place the permanent components. All trial components were removed. A bone plug was placed in the distal femur limit blood loss. A double batch Pal[place]os G cement was mixed. I did add an additional gram of vancomycin due to his history of multiple surgeries on this knee. A Biomet Vanguard size 72.5 right posterior stabilized femoral component, size 79 tibial tray, a 10 mm posterior stabilized polyethylene insert, and a 31 x 8 all polypatella were then cemented in place. The knee was brought out into full extension until cement hardened. Final cement check was then performed. Pericapsular tissues were injected with total 100 cc of combination of 20 cc of Exparel, 30 cc normal saline, 50 cc of quarter percent Marcaine with epinephrine. Patient did receive 1 g tranexamic acid. The tourniquet was then let down for final tourniquet time of 70 minutes. Hemostasis assured use electrocautery. The extensor mechanism closed with combination 1 PDS suture #1 Vicryl suture in [id number] fashion. Extensor mechanism checked found to be intact the subcutaneous tissue then closed with 2 Dexon suture buried fashion skin was closed skin lisy. Leg was then cleaned dried a sterile dressed composed Xeroform, 4 x 4's, sterile cast padding, Vasu bandage applied. Patient then transferred to the recovery room in stable condition. Patient tolerated procedure well and there were no complications. Eddie Kuo, my physician hearing aid assistant, was present for the entire procedure. His assistance was essential and required for appropriate patient positioning, prepping and draping, surgical exposure, performing the technical details of the operation, placement the implants, closure of the wound, and placement of the sterile bandage. I attest to the content of the Intraoperative Record and any orders documented therein. Any exceptions are noted below.
[2020-07-23] MEDS: DOCUSATE SODIUM 100 MG CAP PO SCH (20:53)
[2020-07-23] MEDS: TAPENTADOL HCL ER 50 MG TABCR PO SCH (20:53)
[2020-07-23] MEDS ORDERED: SENNA 8.6 MG TAB PO SCH (21:00)
[2020-07-23] MEDS ORDERED: diphenhydrAMINE Capsule 25 MG CAP PO SCH (21:00)
[2020-07-23] MEDS ORDERED: FLUTICASONE PROPIONATE NA SPR 16 GM BTL NAE SCH (21:00)
[2020-07-24] MEDS: KETOROLAC 30 MG/ML VIAL IV SCH ×3 (00:16→11:57)
[2020-07-24] MEDS: ceFAZolin 2000MG 2,000 MG/15 ML SYR IV SCH (02:25)
[2020-07-24] MEDS: ACETAMINOPHEN 500 MG TAB PO SCH (05:40)
[2020-07-24 07:49] LABS: Hematocrit (blood only) 39.3 % (42-52); Hemoglobin 12.7 g/dL (14.0-18.0); Mean Corpuscular Hemoglobin 33.2 pg (25-34); Mean Corpuscular Hgb Conc 32.3 g/dL (32-36); Mean Corpuscular Volume 102.9 fL (80-100); Mean Platelet Volume 10.3 fL (7.4-10.4); Platelet Count 144 K/uL (130-400); RDW Coefficient of Variation 15.3 % (11.5-14.5); RDW Standard Deviation 56.8 fL (36.4-46.3); Red Blood Count 3.82 M/uL (4.7-6.1); White Blood Count 7.73 K/uL (4.8-10.8)
[2020-07-24 07:57] LABS: INR 1.2 (0.9-1.1); Prothrombin Time 12.3 Seconds (9.0-12.0)
[2020-07-24 08:18] LABS: BUN Creatinine Ratio 16.5 (10-20); Calcium 8.4 mg/dl (8.5-10.1); Creatinine Clr Calc Pharmacy 113.1 ml/min; Est GFR (African American) 88.3; Est GFR (Non-African American) 76.2; Potassium 4.2 mmol/L (3.5-5.1)
--- NOTE | 2020-07-24 08:41 | Progress Notes ---
DATE: 07/24/2020 SUBJECTIVE: A 50-year-old gentleman postop day 1 from right knee replacement. He is doing pretty well. Pain is controlled. He had a pretty good night. No chest pain or shortness of breath. Not feeling dizzy or lightheaded. OBJECTIVE: VITAL SIGNS: Temperature is 36.8. Vital signs stable. GENERAL: Shows a pleasant, middle-aged male. He is sitting up in bed, looks completely comfortable. LUNGS: Clear to auscultation. HEART: Regular rate and rhythm. ABDOMEN: Soft, nontender, nondistended. EXTREMITIES: Grossly neurovascularly intact except as follows: Examination of the right leg reveals the leg to be well aligned. Dressing is clean, dry, and intact. He can dorsiflex and plantarflex his foot appropriately. He is neurologically intact. LABORATORY DATA: Hemoglobin 12.7. Hematocrit 39.3. Electrolytes are pending. INR 1.2. ASSESSMENT: A 50-year-old gentleman with multiple medical comorbidities including Factor V Leiden abnormality and patent foramen ovale and history of some transient ischemic attacks and strokes in the past. He is now postop day 1 from right knee replacement, doing pretty well. He is on thrombotic prophylaxis including Lovenox starting today and back on his Coumadin. His pain is controlled. PLAN: 1. DVT prophylaxis including thigh-high TEDs, SCDs, and Coumadin and also bridged on Lovenox. 2. PT/OT. Weight bear as tolerated. Right total knee protocol. 3. Pain control, doing well with current pain regimen. 4. Disposition: He is really hoping to go home later today. We will see how therapy goes. We will continue to low dose him on Coumadin today. He will be on Lovenox starting today and tomorrow and then discontinue.
[2020-07-24] MEDS: DOCUSATE SODIUM 100 MG CAP PO SCH (08:51)
[2020-07-24] MEDS: ASCORBIC ACID 500 MG TAB PO SCH (08:51)
[2020-07-24] MEDS: FERROUS GLUCONATE 324 MG TAB PO SCH (08:51)
[2020-07-24] MEDS: oxyCODONE HCL IR 5 MG TAB (IMMEDIATE RELEASE) PO PRN (08:58)
[2020-07-24] MEDS: TAPENTADOL HCL ER 50 MG TABCR PO SCH (08:58)
[2020-07-24] MEDS ORDERED: FOLIC ACID 1 MG TAB PO SCH ×2 (09:00)
[2020-07-24] MEDS ORDERED: ASPIRIN 81 MG CHEW PO SCH (09:00)
[2020-07-24] MEDS ORDERED: hydroCHLOROthiazide 25 MG TAB PO SCH (09:00)
[2020-07-24] MEDS ORDERED: THIAMINE HCL 100 MG TAB PO SCH (09:00)
[2020-07-24] MEDS ORDERED: CYANOCOBALAMIN (VITAMIN B-12) 2,500 MCG TAB.SUBL SL SCH (09:00)
[2020-07-24] MEDS ORDERED: CHOLECALCIFEROL 1,000 UNITS 25 MCG TAB PO SCH (09:00)
[2020-07-24] MEDS ORDERED: NICOTINE 14 MG/24 HR PATCH TD SCH (09:00)
[2020-07-24] MEDS ORDERED: ATORVASTATIN 40 MG TAB PO SCH (09:00)
[2020-07-24] MEDS ORDERED: CETIRIZINE HCL 10 MG TABLET PO SCH (09:00)
[2020-07-24] MEDS ORDERED: MULTIVITAMIN TAB PO SCH (09:00)
[2020-07-24] MEDS ORDERED: WARFARIN SOD 10 MG TAB PO ONE ×3 (09:15→16:00)
[2020-07-24] MEDS ORDERED: ENOXAPARIN INJ 40 MG/0.4 ML SYR SQ SCH (12:00)
[2020-07-24] MEDS ORDERED: WARFARIN SOD 2.5 MG TAB PO SCH (16:00)
--- NOTE | 2020-07-29 07:58 | Discharge Summary ---
Date of Service July 29, 2020 Admission HPI Per Admitting Provider Documented in the H &P Admission Exam (Per Admitting) Constitutional Documented in the H &P Discharge Data Consultations 07/23/20 13:02 Consult Case Management - Discharge Planning Routine Procedures Performed Operation Date: 07/23/20 08:50 Actual Procedures p Right Total Knee Arthroplasty(Right) - Juan Paiz MD Hospital Course (1) Status post total right knee replacement: This patient is a 50 year old male admitted on 07/23/20 and underwent total knee arthroplasty. He tolerated the procedure well and there were no complications. Transferred to the PACU post op and later to the orthopedic floor for further care. He was given ancef for antibiotic prophylaxis. He was also given MICHAEL stockings, SCDs, and coumadin for DVT prophylaxis. He was also bridged with lovenox. Hemoglobin, hematocrit, and vital signs were monitored during his hospital stay and remained stable. Did not require any blood transfusions. There were no complications during his hospital stay. By post op day #1 the patient was tolerating a regular diet, pain was reasonably controlled with oral pain medicine, and he was participating in physical therapy. On post op day #1 the patient was discharged home and set up with home health care. He was given printed discharge instructions including prescriptions for extra strength tylenol and oxycodone. Continue coumadin, and he will continue to be bridged with lovenox for 2 days. Continue physical therapy, weight bearing as tolerated. Continue MICHAEL stockings. Follow up approximately 2 weeks post op or sooner if there are problems or concerns. Coding Level of Care Code None Diagnoses Status post total right knee replacement Z96.651
== END 2020-07-24 12:12 | disposition home health service (06) ==
LOC: 3E 06:52 → ASU 06:52
DX: Z79.899 Other long term (current) drug therapy; Z68.41 Body mass index [BMI] 40.0-44.9, adult; E66.9 Obesity, unspecified; Z86.718 Personal history of other venous thrombosis and embolism; Z79.01 Long term (current) use of anticoagulants; M17.11 Unilateral primary osteoarthritis, right knee; I48.91 Unspecified atrial fibrillation; E78.00 Pure hypercholesterolemia, unspecified; F17.210 Nicotine dependence, cigarettes, uncomplicated; Z86.73 Personal history of transient ischemic attack (TIA), and cerebral infarction without residual deficits; Z96.643 Presence of artificial hip joint, bilateral; D68.51 Activated protein C resistance; Z79.82 Long term (current) use of aspirin; I10 Essential (primary) hypertension

== ENCOUNTER 2025-06-01 13:32 | Inpatient (IN) ==
--- NOTE | 2025-06-01 14:13 | Emergency Department Note ---
Impression & Plan Bilateral edema of lower extremity, Pulmonary edema, Dyspnea ED Provider Note ED Provider Note NAME: LORENA XAVIER AGE:55 SEX: Male : 1970 ARRIVES VIA: private vehicle INFORMANT: Patient ED PROVIDER(s): Jess Rodarte DO CHIEF COMPLAINT: leg swelling HPI: This is a 55-year-old male presents emerged from due to concern for bilateral leg swelling which began 2 weeks ago while in a trip to the beach. Patient states he has had fluid in his legs like this before but does not have to take a daily diuretic. Patient states the swelling seem to wax and wane however has been constant since that time. He states he now feels as though it is notably in his legs but also coming up into his abdomen. He has also noticed that he is more winded with any exertion. He denies any prior history of heart attack or congestive heart failure. He does state he has a history of atrial fibrillation and has had prior strokes and is anticoagulated on warfarin. He states he has a "hole in his heart that caused the stroke". No other recent change in diet or medications. He denies any recent fevers, chills, or URI symptoms. PAST MEDICAL HISTORY:See Below PAST SURGICAL HISTORY:See Below FAMILY HISTORY:See Below SOCIAL HISTORY:See Below HOME MEDICATIONS:See Below ALLERGIES:See Below VITALS:See Below PHYSICAL EXAMINATION: GENERAL: alert, well appearing, well nourished, no distress, non-toxic EYE EXAM: normal conjunctiva, PERRL and EOM's grossly intact OROPHARYNX: no exudate, no erythema, lips, buccal mucosa, and tongue normal and mucous membranes are moist NECK: supple, no nuchal rigidity, no adenopathy, non-tender LUNGS: Clear to auscultation. Normal chest wall mechanics, no w/r/r, conversational dyspnea HEART: no murmurs, S1 normal and S2 normal ABDOMEN: abdomen soft, non-tender, normo-active bowel sounds, no masses, no rebound or guarding. Abdominal wall edema. BACK: Back is symmetrical on inspection and there is no deformity, no midline tenderness, no CVA tenderness. SKIN: no rashes, petechiae, orbruising UPPER EXTREMITIES: upper extremities are grossly normal. FROM, nml pulses b/l. LOWER EXTREMITIES: 3+ b/l pitting edema. FROM, nml pulses b/l. NEURO EXAM: Normal sensorium, cranial nerves II-XII grossly intact, normal speech, no facial droop,nogross weakness of arms, no gross weakness of legs. Gross sensation intact. No ataxia. Vital Signs: reviewed and remarkable Differential Diagnosis: pneumonia, bronchitis, COPD/Asthma exacerbation, pneumothorax, pulmonary embolism, congestive heart failure, acute coronary syndrome, as well as others were considered MEDICAL DECISION MAKING: This is a 55-year-old male presents the emergency department due to concern for 2 weeks of increased lower extremity edema now with accompanying abdominal wall edema and dyspnea on exertion. Patient was afebrile and vital signs stable on arrival. Labs drawn and sent, IV established, EKG and CXR performed and interpreted at bedside, and patient placed on telemetry. Patient noted to be subtherapeutic on his INR was sent for CT angiography of the chest additionally. BNP was added to initial labs that were drawn and was found to be elevated. No evidence of DA, troponin negative, normal H&H. CT chest found no PE, however pulmonary edema was noted, no other focal consolidation or evidence of infection. Patient updated on all results and was given evidence of IV Lasix. Given worsening symptoms and comorbid conditions, we discussed additional inpatient management, he and family bedside were in agreement. Case discussed with hospitalist team for further evaluation and management. Consultation(s): 1734: Discussed with Dr. Sheth, [place] hospitalist team, for additional evaluation and mgmt. ER Treatment Provided: See below Diagnostics Interpreted By Me: -ECG: Atrial fibrillation at 105, rightward axis, normal intervals, nonspecific ST/T wave changes -Cardiac Monitoring: An order was placed for continuous cardiac monitoring. The monitor shows a rate of 112 with a.fib rhythm. -Laboratory studies: As stated above and show below. -Imaging studies: X-ray Chest: A single view study of the chest was reviewed and was negative for cardiomegaly, focal infiltrate, effusion, or wide mediastinum. Mild b/l interstitial edema noted. 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) Obesity, diabetes, and hypertension syndrome Elevated MCV Annual physical exam Status post total right knee replacement Smoker Vitamin D deficiency Encounter for weight management Osteoarthritis of right knee Loose body of right knee Effusion, right knee Right knee pain Hyperlipidemia Factor 5 Leiden mutation, heterozygous Hip problem (Chronic) Medical History Spinal cord mass Exposure to COVID-19 virus PFO (patent foramen ovale) Osteoarthritis Enlarged prostate Embolic stroke Surgical History History of esophagogastroduodenoscopy (EGD) History of total right knee replacement History of myringotomy History of colonoscopy History of sinus surgery History of hip replacement History of knee surgery Family History Father Diabetes Cancer Mother Family history of reaction to anesthesia SLOW TO WAKE UP Denies family history of Ovarian cancer Prostate cancer Myocardial infarction Breast cancer Colorectal cancer Social History Smoking Status: Current every day smoker Tobacco Type: Cigarettes Age Started Using Tobacco: 20; packs per day: 2; Cigarettes Per Day: 30; Second Hand Exposure: Yes (hx growing up); Do You Dip or Chew Tobacco: No (in the past; advised); Hx Alcohol Use: Yes Alcohol type: beer and hard liquor Alcohol Intake Frequency: 2-3 x/Week Hx Substance Use: No Preferred Language: Tam[place] Communication Ability: Effective Visual Impairment: No Limitations Hearing Ability: Normal 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 Beliefs That Will Affect Care: None marital status: Current Living Situation: Family current occupational status: employed 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 USE DYE FREE WARFARIN. NO ALLERGY TO "WARFARIN" Home Meds Home Medications Medication Instructions Recorded Confirmed aspirin 81 mg chewable tablet 81 mg PO QAM ##0 05/16/16 06/01/25 cetirizine 10 mg tablet 10 mg PO QAM #0 tabs 05/16/16 06/01/25 folic acid 1 mg tablet 1 mg PO QAM 90 days #90 tabs 05/16/16 06/01/25 fluticasone propionate 50 2 spray intranasal QPM PRN 10/27/16 06/01/25 mcg/actuation nasal Congestion ##0 spray,suspension (Flonase Allergy Relief) diphenhydramine HCl 25 mg tablet 25 mg PO QAM ##0 03/02/17 06/01/25 acetaminophen 500 mg tablet 1,000 mg PO Q8H PRN Pain #0 tabs 10/19/17 06/01/25 cholecalciferol (vitamin D3) 125 5,000 units PO QAM 11/22/18 06/01/25 mcg (5,000 unit) capsule cyanocobalamin (vitamin B-12) 5,000 mcg PO QAM #0 tabs 07/18/19 06/01/25 1,000 mcg tablet (Vitamin B-12) amoxicillin 500 mg tablet 2,000 mg PO UD 09/12/24 06/01/25 rivaroxaban 20 mg tablet (Xarelto) 20 mg PO QAM 06/01/25 06/01/25 Previous Rx's Medication Instructions Recorded blood sugar diagnostic (OneTouch #100 ea 06/16/22 Ultra Test strips) blood-glucose meter (OneTouch #1 ea 06/16/22 Ultra2 Meter) lancets 33 gauge (OneTouch Delica #100 ea 12/22/22 Plus Lancet) lisinopril 10 mg tablet 10 mg PO QAM #90 tabs 11/05/24 metformin 500 mg tablet 500 mg PO QAM #90 tabs 11/05/24 atorvastatin 40 mg tablet 40 mg PO QAM #90 tabs 02/02/25 Results & Data (ED) Vital Signs Vital Signs - 24 hr 06/01/25 13:35 06/01/25 13:40 06/01/25 14:18 Temperature 36.0 C L Temperature Source Temporal Artery Scan Pulse Rate 108 H 109 H 87 Pulse Rate from SpO2 Sensor 99 H Pulse Rhythm Regular Respiratory Rate 20 14 31 H Blood Pressure 146/93 H Blood Pressure Mean 110 Pulse Oximetry 93 93 88 L Oxygen Delivery Method Room Air Nasal Cannula Oxygen Flow Rate 2 Sepsis Recent Fever Within 48 Hours No Sepsis New/Unexplained Change in Mental Status N/A Sepsis Action Taken by Nursing No Action Required 06/01/25 14:27 06/01/25 14:33 06/01/25 14:45 Temperature Temperature Source Pulse Rate 98 H 100 H 98 H Pulse Rate from SpO2 Sensor 100 H Pulse Rhythm Respiratory Rate 21 17 14 Blood Pressure Blood Pressure Mean Pulse Oximetry 87 L Oxygen Delivery Method Oxygen Flow Rate Sepsis Recent Fever Within 48 Hours Sepsis New/Unexplained Change in Mental Status Sepsis Action Taken by Nursing 06/01/25 14:50 06/01/25 14:51 06/01/25 14:57 Temperature Temperature Source Pulse Rate 111 H 102 H 84 Pulse Rate from SpO2 Sensor 116 H 82 Pulse Rhythm Respiratory Rate 16 21 Blood Pressure Blood Pressure Mean Pulse Oximetry 92 92 Oxygen Delivery Method Oxygen Flow Rate Sepsis Recent Fever Within 48 Hours Sepsis New/Unexplained Change in Mental Status Sepsis Action Taken by Nursing 06/01/25 14:59 06/01/25 15:01 06/01/25 15:01 Temperature Temperature Source Pulse Rate Pulse Rate from SpO2 Sensor Pulse Rhythm Respiratory Rate Blood Pressure 139/99 143/104 H 143/104 H Blood Pressure Mean 116 126 126 Pulse Oximetry Oxygen Delivery Method Oxygen Flow Rate Sepsis Recent Fever Within 48 Hours Sepsis New/Unexplained Change in Mental Status Sepsis Action Taken by Nursing 06/01/25 15:01 06/01/25 15:03 06/01/25 15:18 Temperature Temperature Source Pulse Rate 99 H 93 H Pulse Rate from SpO2 Sensor 114 H 87 Pulse Rhythm Respiratory Rate 20 23 Blood Pressure 143/104 H Blood Pressure Mean 126 Pulse Oximetry 94 88 L Oxygen Delivery Method Oxygen Flow Rate Sepsis Recent Fever Within 48 Hours Sepsis New/Unexplained Change in Mental Status Sepsis Action Taken by Nursing 06/01/25 15:21 06/01/25 15:31 06/01/25 15:31 Temperature Temperature Source Pulse Rate 103 H Pulse Rate from SpO2 Sensor 98 H Pulse Rhythm Respiratory Rate 17 Blood Pressure 145/91 H 145/91 H Blood Pressure Mean 105 105 Pulse Oximetry 94 Oxygen Delivery Method Oxygen Flow Rate Sepsis Recent Fever Within 48 Hours Sepsis New/Unexplained Change in Mental Status Sepsis Action Taken by Nursing 06/01/25 15:39 06/01/25 16:00 06/01/25 16:00 Temperature Temperature Source Pulse Rate 87 Pulse Rate from SpO2 Sensor 93 H Pulse Rhythm Respiratory Rate 20 Blood Pressure 145/106 H 145/106 H Blood Pressure Mean 122 122 Pulse Oximetry 93 Oxygen Delivery Method Oxygen Flow Rate Sepsis Recent Fever Within 48 Hours Sepsis New/Unexplained Change in Mental Status Sepsis Action Taken by Nursing 06/01/25 16:00 06/01/25 16:42 06/01/25 17:06 Temperature Temperature Source Pulse Rate 89 90 Pulse Rate from SpO2 Sensor 90 88 Pulse Rhythm Respiratory Rate 17 23 Blood Pressure 145/106 H Blood Pressure Mean 122 Pulse Oximetry 94 93 Oxygen Delivery Method Oxygen Flow Rate Sepsis Recent Fever Within 48 Hours Sepsis New/Unexplained Change in Mental Status Sepsis Action Taken by Nursing 06/01/25 17:12 Temperature Temperature Source Pulse Rate 95 H Pulse Rate from SpO2 Sensor 89 Pulse Rhythm Respiratory Rate 18 Blood Pressure 139/103 H Blood Pressure Mean 115 Pulse Oximetry 94 Oxygen Delivery Method Oxygen Flow Rate Sepsis Recent Fever Within 48 Hours Sepsis New/Unexplained Change in Mental Status Sepsis Action Taken by Nursing Laboratory Data 06/01/25 14:35 06/01/25 13:56 Lab Results 06/01/25 06/01/25 Range/Units 13:56 14:35 WBC 5.45 (4.8-10.8) K/ul RBC 4.95 (4.70-6.10) M/uL Hgb 16.4 (14.0-18.0) g/dl Hct 51.8 (42.0-52.0) % MCV 104.6 H (80.0-100.0) fL MCH 33.1 (25.0-34.0) pg MCHC 31.7 L (32.0-36.0) g/dL RDW Std Deviation 61.1 H (36.4-46.3) fL RDW Coeff of Deb 15.7 H (11.5-14.5) % Plt Count 180 (130-400) K/uL MPV 11.1 (9.4-12.4) fL Immature Gran % (Auto) 0.2 % Neut % (Auto) 61.6 % Lymph % (Auto) 24.2 % [place] % (Auto) 11.7 % Eos % (Auto) 1.7 % Baso % (Auto) 0.6 % Neut # (Auto) 3.36 (1.40-6.50) K/uL Lymph # (Auto) 1.32 (1.20-3.40) K/uL [place] # (Auto) 0.64 H (0.11-0.59) K/uL Eos # (Auto) 0.09 (0.00-0.50) K/uL Baso # (Auto) 0.03 (0.00-0.20) K/uL Immature Gran # (Auto) 0.01 (0.01-0.20) K/uL PT 15.6 H (9.0-12.0) Seconds INR 1.5 H (0.9-1.1) APTT 34 H (21-31) Seconds PTT Ratio 1.3 Sodium 139 (136-145) mmol/L Potassium 4.1 (3.5-5.1) mmol/L Chloride 100 (98-107) mmol/L Carbon Dioxide 33 H (21-32) mmol/L Anion Gap 6 (3-11) BUN 23 (6-23) mg/dl Creatinine 0.95 (0.6-1.4) mg/dl Est Cr Clr Drug Dosing 125.7 ml/min eGFR 94.53 BUN/Creatinine Ratio 24.2 H (10-20) Glucose 104 H (70-99(Fasting)) mg/dl Calcium 8.8 (8.6-10.3) mg/dl Magnesium 2.0 (1.7-2.4) mg/dl Total Bilirubin 0.7 (0.2-1.0) mg/dl AST 17 (13-39) U/L ALT 12 (7-52) U/L Alkaline Phosphatase 72 (34-104) U/L Troponin I High Sens 11.8 (0-20) pg/ml B-Natriuretic Peptide 234 H (0-100) pg/ml Total Protein 6.7 (6.0-8.3) gm/dl Albumin 4.2 (3.4-5.0) gm/dl Globulin 2.5 (2.5-4.0) gm/dl Albumin/Globulin Ratio 1.7 (0.9-2) TSH 3.459 (0.300-4.500) uIu/ml Administered Medications Insulin Aspart (Insulin Aspart Per Unit Charge) 0 units SC ACHS EMMETT Stop: 07/01/25 20:59 Last Admin: 06/01/25 20:40 Dose: Not Given Documented By: EMB Discontinued Medications Furosemide (Furosemide 40 Mg/4 Ml Vial) 40 mg IV ONE ONE Stop: 06/01/25 16:37 Last Admin: 06/01/25 16:40 Dose: 40 mg Documented By: YURI Ioversol (Optiray 320 125ml) 119 ml IV ONCE ONE Stop: 06/01/25 16:14 Last Admin: 06/01/25 16:13 Dose: 119 ml Documented By: ADRIANE Imaging Data Radiologist's Impression: Chest X-Ray 06/01/25 13:40 XR chest 1V portable CLINICAL HISTORY: Chest pain, nonspecific COMPARISON STUDY: 06/24/2020 FINDINGS: There is mild cardiomegaly without pulmonary vascular congestion. No consolidation or pleural effusion seen. No pneumothorax. IMPRESSION: No acute findings. ACT 112: Negative or not required by law. Electronically signed by: Ryan Gandhi M.D. 06/01/2025 2:23 PM Chest CTA 06/01/25 15:36 CT pulmonary angiogram with IV contrast History: Chest pain COMPARISON: None TECHNIQUE: CT angiography of the chest was performed without IV contrast followed by IV contrast, including 3D post processing CTA image reconstruction. Dose reduction techniques were achieved by using automatic exposure control and/or adjustment of mA and/or kV according to patient size and/or use of iterative reconstruction technique. FINDINGS: Diagnostic quality: Adequate There is no evidence for pulmonary embolism. The heart is not enlarged. Moderate coronary calcification. There is no pericardial effusion. There are no abnormally enlarged hilar or mediastinal lymph nodes. The central tracheobronchial tree is clear. The lungs are clear. Small right pleural effusion. Mild interstitial and alveolar pulmonary edema. Moderate centrilobular and paraseptal emphysema. Limited visualized upper abdomen. No destructive osseous changes are seen. IMPRESSION: No evidence for pulmonary embolism. Small right pleural effusion, as well as pulmonary edema present. Electronically signed by Juan Whitley 06-01-2025 4:31 PM Discharge Plan Visit Data Chief Complaint: Swelling/Edema to Extremity Stated Complaint: EXCESSIVE SWELLING ED Provider: Jess Rodarte Discharge Problem: Bilateral edema of lower extremity, Pulmonary edema, Dyspnea Patient Disposition: Admitted As Inpatient Condition: Fair Discharge Instructions Interventions: ED Discharge Assessment Last Done: 06/01/25 19:48
--- NOTE | 2025-06-01 14:24 | XRay Report ---
XR chest 1V portable CLINICAL HISTORY: Chest pain, nonspecific COMPARISON STUDY: 06/24/2020 FINDINGS: There is mild cardiomegaly without pulmonary vascular congestion. No consolidation or pleur al effusion seen. No pneumothorax. IMPRESSION: No acute findings. ACT 112: Negative or not required by law. Electronically signed by: Ryan Gandhi M.D. 06/01/2025 2:23 PM
[2025-06-01 14:30] LABS: Alanine Aminotransferase 12.0 U/L (7-52); Albumin Globulin Ratio 1.7 (0.9-2); Albumin Level 4.2 gm/dl (3.4-5.0); Alkaline Phosphatase 72.0 U/L (34-104); Anion Gap 6.0 (3-11); Bilirubin,Total 0.7 mg/dl (0.2-1.0); Blood Urea Nitrogen 23.0 mg/dl (6-23); Calcium 8.8 mg/dl (8.6-10.3); Carbon Dioxide 33.0 mmol/L (21-32); Chloride 100.0 mmol/L (98-107); Creatinine Clr Calc Pharmacy 125.7 ml/min; Globulin 2.5 gm/dl (2.5-4.0); Glucose 104.0 mg/dl (70-99(Fasting)); Potassium 4.1 mmol/L (3.5-5.1); Sodium 139.0 mmol/L (136-145); Total Protein 6.7 gm/dl (6.0-8.3)
[2025-06-01 14:44] LABS: Magnesium 2.0 mg/dl (1.7-2.4)
[2025-06-01 14:58] LABS: Hematocrit (blood only) 51.8 % (42.0-52.0); Hemoglobin 16.4 g/dl (14.0-18.0); Immature Granulocytes # (auto) 0.01 K/uL (0.01-0.20); Immature Granulocytes % (auto) 0.2 %; Mean Corpuscular Hemoglobin 33.1 pg (25.0-34.0); Mean Corpuscular Volume 104.6 fL (80.0-100.0); Platelet Count 180 K/uL (130-400); RDW Standard Deviation 61.1 fL (36.4-46.3); Red Blood Count 4.95 M/uL (4.70-6.10); White Blood Count 5.45 K/ul (4.8-10.8)
[2025-06-01 15:00] LABS: Thyroid Stimulating Hormone 3.459 uIu/ml (0.300-4.500)
[2025-06-01 15:28] LABS: INR 1.5 (0.9-1.1); Partial Thromboplastin Time 34 Seconds (21-31); Prothrombin Time 15.6 Seconds (9.0-12.0)
[2025-06-01] MEDS: OPTIRAY 320 125ml IV ONE (16:13)
--- NOTE | 2025-06-01 16:33 | CT Scan Report ---
CT pulmonary angiogram with IV contrast History: Chest pain COMPARISON: None TECHNIQUE: CT angiography of the chest was performed without IV contrast followed by IV contrast, including 3D post processing CTA image reconstruction. Dose reduction techniques were achieved by using automatic exposure control and/or adjustment of mA and/or kV according to patient size and/or use of iterative reconstruction technique. FINDINGS: Diagnostic quality: Adequate There is no evidence for pulmonary embolism. The heart is not enlarged. Moderate coronary calcification. There is no pericardial effusion. There are no abnormally enlarged hilar or mediastinal lymph nodes. The central tracheobronchial tree is clear. The lungs are clear. Small right pleural effusion. Mild interstitial and alveolar pulmonary edema. Moderate centrilobular and paraseptal emphysema. Limited visualized upper abdomen. No destructive osseous changes are seen. IMPRESSION: No evidence for pulmonary embolism. Small right pleural effusion, as well as pulmonary edema present. Electronically signed by Juan Whitley 06-01-2025 4:31 PM
[2025-06-01] MEDS: FUROSEMIDE 40 MG/4 ML VIAL IV ONE (16:40)
[2025-06-01] MEDS ORDERED: GLUCOSE 10 TAB/TUBE PO PRN (18:07)
[2025-06-01] MEDS ORDERED: GLUCOSE 40% GEL 15 GM TUBE PO PRN (18:07)
[2025-06-01] MEDS ORDERED: DEXTROSE 50% 50 ML SYRINGE IV PRN (18:07)
[2025-06-01] MEDS ORDERED: GLUCAGON FOR INJ 1 MG VIAL SQ PRN (18:07)
[2025-06-01] MEDS ORDERED: CARBOHYDRATES FOR HYPOGLYCEMIA PO PRN (18:07)
[2025-06-01] MEDS ORDERED: LORazepam 1 MG TAB PO PRN ×3 (18:24)
--- NOTE | 2025-06-01 18:28 | History & Physical Report ---
Date of Service June 01, 2025 Assessment & Plan (1) Pulmonary edema: (2) Bilateral edema of lower extremity: (3) Paroxysmal A-fib: (4) Dyspnea: Plan 55 yr old M with PMHx of HTN, HLD, DMII, Factor V leiden, PFO w/ h/o stroke, smoker (1 1/2 PPD x35 yrs), weekly alcohol use (2-3 rum based mixed drinks 3 times per week), suspected JORGE L presents to [facility] ED for the evaluation of increased edema of lower extremity / abdomen. #Acute heart failure - admit to PCU - pt denies prior HF hx - BNP 234 - check ECHO - s/p Lasix 40mg IV in the ED with good response, will cont BID for now - 2g Na restriction - dietary consult - monitor renal fn and electrolytes - hold off on cardiology c/s at this time #Factor V Leiden deficiency #h/o PFO #h/o stroke - pt states he is compliant with xarelto - check LE duplex - CTA neg for PE - cont Xarelto #DM II - check A1c - hold metformin - sens sliding scale - carb controlled diet - hypoglycemic protocol ordered #h/o paroxysmal AFib - on rate controlled - monitor on tele - cont xarelto #HTN #HLD - cont lisinopril and atorvastatin #Suspected JORGE L - trial of CPAP here if pt tolerates - polysomnography as outpatient #Tobacco use d/o #EtOh use d/o - pt aware of cessation - monitor at this time - prn ativan ordered #DVT ppx: already on xarelto #Dispo- admit to PCU / tele History of Present Illness Chief Complaint: leg swelling Primary Care Provider: Jovany Fink, DO 55 yr old M with PMHx of HTN, HLD, DMII, Factor V leiden, PFO w/ h/o stroke, smoker (1 1/2 PPD x35 yrs), weekly alcohol use (2-3 rum based mixed drinks 3 times per week), suspected JORGE L presents to [facility] ED for the evaluation of increased edema of lower extremity / abdomen. Pt notes that this started about 2 weeks ago. He drove to vacation at [place] ([address] He stopped twice to walk around due to Factor V Leiden deficiency. Once he got to his destination, he states that his ankles were swollen. He is not sure how the edema progressed while he was there, but once he got home (05/28/25), he noticed that it has gotten to his lower abdomen. He also noticed that he had increased DAVEY, as well as conversational dyspnea. He was hoping that with movement, his edema would improve. However, since it didn't, he came to the hospital. He also noted abdominal bloating. However, denied chest pain, palpitations, dizziness, N/V. Allergies Allergy/AdvReac Type Severity Reaction Status Date / Time warfarin Allergy Intermediate DYE Verified 03/12/25 10:09 ALLERGY. USE DYE FREE WARFARIN. NO ALLERGY TO "WARFARIN" Home Medications Medication Instructions Recorded Confirmed Type aspirin 81 mg chewable tablet 81 mg PO QAM ##0 05/16/16 06/01/25 History cetirizine 10 mg tablet 10 mg PO QAM #0 tabs 05/16/16 06/01/25 History folic acid 1 mg tablet 1 mg PO QAM 90 days #90 tabs 05/16/16 06/01/25 History fluticasone propionate 50 2 spray intranasal QPM PRN 10/27/16 06/01/25 History mcg/actuation nasal Congestion ##0 spray,suspension (Flonase Allergy Relief) diphenhydramine HCl 25 mg tablet 25 mg PO QAM ##0 03/02/17 06/01/25 History acetaminophen 500 mg tablet 1,000 mg PO Q8H PRN Pain #0 tabs 10/19/17 06/01/25 History cholecalciferol (vitamin D3) 125 5,000 units PO QAM 11/22/18 06/01/25 History mcg (5,000 unit) capsule cyanocobalamin (vitamin B-12) 5,000 mcg PO QAM #0 tabs 07/18/19 06/01/25 History 1,000 mcg tablet (Vitamin B-12) blood sugar diagnostic (trueAnthemTouch #100 ea 06/16/22 06/01/25 Rx Ultra Test strips) blood-glucose meter (trueAnthemTouch #1 ea 06/16/22 06/01/25 Rx Ultra2 Meter) lancets 33 gauge (OneTouch Delica #100 ea 12/22/22 06/01/25 Rx Plus Lancet) amoxicillin 500 mg tablet 2,000 mg PO UD 09/12/24 06/01/25 History lisinopril 10 mg tablet 10 mg PO QAM #90 tabs 11/05/24 06/01/25 Rx metformin 500 mg tablet 500 mg PO QAM #90 tabs 11/05/24 06/01/25 Rx atorvastatin 40 mg tablet 40 mg PO QAM #90 tabs 02/02/25 06/01/25 Rx rivaroxaban 20 mg tablet (Xarelto) 20 mg PO QAM 06/01/25 06/01/25 History Past Med/Surg History Problem List (Updated 06/01/25 @ 17:39 by Jess Rodarte, ) Dyspnea (Acute) Pulmonary edema (Acute) Bilateral edema of lower extremity (Acute) Pes planus of both feet The arch is starting to collapse in both feet Rectus diastasis History of colon polyps Emphysema lung Paroxysmal A-fib Morbid obesity due to excess calories Excessive drinking of alcohol Radicular low back pain Spinal cord mass H/O bilateral hip replacements Hypokalemia USP (current) use of anticoagulants (Chronic) Obesity, diabetes, and hypertension syndrome Elevated MCV Annual physical exam Status post total right knee replacement Smoker Vitamin D deficiency Encounter for weight management Osteoarthritis of right knee Loose body of right knee Effusion, right knee Right knee pain Hyperlipidemia Factor 5 Leiden mutation, heterozygous Hip problem (Chronic) Medical History Spinal cord mass Exposure to COVID-19 virus PFO (patent foramen ovale) Osteoarthritis Enlarged prostate Embolic stroke Surgical History History of esophagogastroduodenoscopy (EGD) History of total right knee replacement History of myringotomy History of colonoscopy History of sinus surgery History of hip replacement History of knee surgery Family History Father Diabetes Cancer Mother Family history of reaction to anesthesia SLOW TO WAKE UP Denies family history of Ovarian cancer Prostate cancer Myocardial infarction Breast cancer Colorectal cancer Social History Smoking Status: Current every day smoker Tobacco Type: Cigarettes Age Started Using Tobacco: 20; packs per day: 2; Cigarettes Per Day: 30; Second Hand Exposure: Yes (hx growing up); Do You Dip or Chew Tobacco: No (in the past; advised); Hx Alcohol Use: Yes Alcohol type: beer and hard liquor Alcohol Intake Frequency: 2-3 x/Week Hx Substance Use: No Preferred Language: Armenian Communication Ability: Effective Visual Impairment: No Limitations Hearing Ability: Normal Director Private Required: No Beliefs That Will Affect Care: None marital status: Current Living Situation: Spouse current occupational status: employed 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 Physical Exam Physical Exam: Gen: fatigued, sitting upright in bed HEENT: NC/AT, MMM Lungs: conversational dyspnea, diminished breath sounds at the bases CVS: s1s2nl, irregular Abd: nl bowel sounds, soft, NT, protuberant abdomen, pitting edema in the lower abdomen : no forbes Ext: 3+ pitting edema b/l LE, dusky toes / cool to touch (chronic per pt) Neuro: AAOx3 Psych: calm cooperative Results & Data Results & Data Vital Signs (Past 12 Hours) Vital Signs Temp Pulse Resp BP Pulse Ox O2 Del Method O2 Flow Rate 06/01/25 17:12 95 H 18 139/103 H 94 06/01/25 17:06 90 23 93 06/01/25 16:42 89 17 94 06/01/25 16:00 145/106 H 06/01/25 16:00 145/106 H 06/01/25 16:00 145/106 H 06/01/25 15:39 87 20 93 06/01/25 15:31 145/91 H 06/01/25 15:31 145/91 H 06/01/25 15:21 103 H 17 94 06/01/25 15:18 93 H 23 88 L 06/01/25 15:03 99 H 20 94 06/01/25 15:01 143/104 H 06/01/25 15:01 143/104 H 06/01/25 15:01 143/104 H 06/01/25 14:59 139/99 06/01/25 14:57 84 21 92 06/01/25 14:51 102 H 16 92 06/01/25 14:50 111 H 06/01/25 14:45 98 H 14 87 L 06/01/25 14:33 100 H 17 06/01/25 14:27 98 H 21 06/01/25 14:18 87 31 H 88 L 06/01/25 13:40 109 H 14 93 Nasal Cannula 2 06/01/25 13:35 36.0 C L 108 H 20 146/93 H 93 Room Air Code Status & VTE Plan VTE Prophylaxis Plan VTE Prophylaxis will be ordered: Yes PG Care Time/CCT Total # of Minutes Spent Total Time Spent with Patient: Total time spent is greater than 50% in coordination of care (as documented) at patient's floor/unit and/or counseling patient: Coding Level of Care Code 78441 INT INP/OBS CARE 3/75MIN Diagnoses Pulmonary edema J81.1 Bilateral edema of lower extremity R60.0 Paroxysmal A-fib I48.0 Dyspnea R06.00
--- NOTE | 2025-06-01 19:12 | Ultrasound Report ---
Technique: Venous ultrasound evaluation was performed utilizing grayscale, color Doppler and wave form evaluation. Images were also obtained with and without compression Findings: The bilateral common femoral, superficial femoral, popliteal, and visualized calf veins demonstrate normal anechoic lumens with full compressibility. Normal flow is seen on color Doppler images. Expected waveforms were produced with augmentation maneuvers Impression: No evidence of deep venous thrombosis Electronically signed by Maximus Painting 06-01-2025 7:12 PM
[2025-06-01] MEDS ORDERED: MELATONIN 3 MG TAB PO PRN (19:47)
[2025-06-01] MEDS ORDERED: ACETAMINOPHEN 325 MG TAB PO PRN (19:47)
[2025-06-01] MEDS ORDERED: NITROGLYCERIN SL 0.4 MG/TAB TAB SL PRN (19:47)
[2025-06-01] MEDS ORDERED: ONDANSETRON INJ 2 MG/ML 2 ML VIAL IV PRN (19:47)
[2025-06-01] MEDS: INSULIN ASPART PER UNIT CHARGE SC SCH (20:40)
--- NOTE | 2025-06-02 02:38 | Communication Note ---
Date of Service: June 02, 2025 Called to bedside by nurse around 02:30; pt admitted on 2L O2 NC and when staff went in to get his vitals and his oxygen had been taken off and his saturations were in the 60s. Oxygen was reapplied via oxymask 8L and oxygen saturations started to rise and then up to 95%, but did take a few minutes. Went to bedside immediately. Pt laying comfortably, no acute distress, pleasant. Admitted for CHF exac, treated earlier with 40mg IV lasix with good output initially with this and this is ordered as BID from now. CXR done and no progression of disease process noted per my read. Lungs on auscultation with subpar air movement and wheezing particularly in the bases. Labs ordered. Ordered duoneb. Suspect pt has some level of COPD given tobacco hx and some level of JORGE L per OP notes as well. Pt seems entirely unaffected of hypoxic episode and notes feeling well, no concerns at this time. Did discuss alcohol use for him as well, he states he drinks on days he does not work, maybe 2-3 days a week and he has gone multiple days without drinking with no issues. Last reported drink was sunday. Labs unremarkable except for VBG. VBG notes respiratory acidosis (CO2 retention), encouraged bipap/CPAP use for remainder of night. Resident Activity Tracking Resident Involvement: Resident Care Provided Care Provided: Adult Hospital Medicine
[2025-06-02] MEDS: ALBUT/IPRATROP 3MG/0.5MG NEB 3 ML VIAL NEB STA (02:48)
[2025-06-02 03:06] LABS: Base Excess VBG 8.7 mEq/L; HCO3 VBG 37 mmol/L; Oxygen Saturation VBG 87.8 %; PCO2 VBG 69 mmHg (38-50); PO2 VBG 56 mmHg; pH VBG 7.34 (7.36-7.41)
[2025-06-02 03:13] LABS: Hematocrit (blood only) 49.0 % (42.0-52.0); Hemoglobin 15.3 g/dl (14.0-18.0); Immature Granulocytes # (auto) 0.01 K/uL (0.01-0.20); Immature Granulocytes % (auto) 0.2 %; Mean Corpuscular Hemoglobin 32.8 pg (25.0-34.0); Mean Corpuscular Volume 105.2 fL (80.0-100.0); Platelet Count 159 K/uL (130-400); RDW Standard Deviation 61.2 fL (36.4-46.3); Red Blood Count 4.66 M/uL (4.70-6.10); White Blood Count 6.57 K/ul (4.8-10.8)
[2025-06-02 03:28] LABS: Alanine Aminotransferase 15.0 U/L (7-52); Albumin Globulin Ratio 1.3 (0.9-2); Albumin Level 3.7 gm/dl (3.4-5.0); Alkaline Phosphatase 78.0 U/L (34-104); Anion Gap 6.0 (3-11); Bilirubin,Total 0.8 mg/dl (0.2-1.0); Blood Urea Nitrogen 18.0 mg/dl (6-23); Calcium 8.9 mg/dl (8.6-10.3); Carbon Dioxide 36.0 mmol/L (21-32); Chloride 98.0 mmol/L (98-107); Creatinine Clr Calc Pharmacy 128.4 ml/min; Globulin 2.8 gm/dl (2.5-4.0); Glucose 135.0 mg/dl (70-99(Fasting)); Magnesium 2.0 mg/dl (1.7-2.4); Potassium 3.9 mmol/L (3.5-5.1); Sodium 140.0 mmol/L (136-145); Total Protein 6.5 gm/dl (6.0-8.3)
--- NOTE | 2025-06-02 03:40 | XRay Report ---
EXAM: XR chest 1V portable CLINICAL HISTORY: worsening hypoxia TECHNIQUE: A radiograph of the chest was acquired. 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 The lungs are clear and well expanded with no pulmonary infiltrate or pleural effusion. The cardiomediastinal silhouette is within normal limits. There is no acute osseous abnormality. IMPRESSION: 1. Prominent bilateral bronchovascular shadows with mild bilateral perihilar congestion. New finding. Electronically signed by Hermes Coleman 06-02-2025 03:40 AM
[2025-06-02 07:12] LABS: Anion Gap 6.0 (3-11); Blood Urea Nitrogen 17.0 mg/dl (6-23); Calcium 8.7 mg/dl (8.6-10.3); Carbon Dioxide 36.0 mmol/L (21-32); Chloride 99.0 mmol/L (98-107); Cholesterol 110.0 mg/dl (0-200); Creatinine Clr Calc Pharmacy 149.3 ml/min; Glucose 126.0 mg/dl (70-99(Fasting)); HDL Cholesterol 33.0 mg/dl; Magnesium 2.0 mg/dl (1.7-2.4); Potassium 3.8 mmol/L (3.5-5.1); Sodium 141.0 mmol/L (136-145); Triglycerides 98.0 mg/dl (0-150)
[2025-06-02 07:35] LABS: Hemoglobin A1C 6.9 % (4.5-5.6)
[2025-06-02] MEDS: THIAMINE HCL 100 MG TAB PO SCH (08:38)
[2025-06-02] MEDS: FOLIC ACID 1 MG TAB PO SCH (08:38)
[2025-06-02] MEDS: MULTIVITAMIN TAB PO SCH (08:39)
[2025-06-02] MEDS: ASPIRIN 81 MG ECTAB PO SCH (08:39)
[2025-06-02] MEDS: ATORVASTATIN 40 MG TAB PO SCH (08:42)
[2025-06-02] MEDS: FUROSEMIDE 40 MG/4 ML VIAL IV SCH (08:55)
[2025-06-02] MEDS ORDERED: FOLIC ACID 1 MG TAB PO SCH (09:00)
--- NOTE | 2025-06-02 09:02 | Hospitalist Progress Note ---
Date of Service June 02, 2025 Assessment & Plan (1) Pulmonary edema: (2) Bilateral edema of lower extremity: (3) Paroxysmal A-fib: (4) Dyspnea: Plan 55 yr old M with PMHx of HTN, HLD, DMII, Factor V leiden, PFO w/ h/o stroke, smoker (1 1/2 PPD x35 yrs), weekly alcohol use (2-3 rum based mixed drinks 3 times per week), suspected JORGE L presents to [facility] ED for the evaluation of increased edema of lower extremity / abdomen. #Acute heart failure - admit to PCU - pt denies prior HF hx - BNP 234 - ECHO (06/02/25) showing EF of 50-55%, moderately dilated LA, moderately dilated IVC, RVSP 40-50% - s/p Lasix 40mg IV in the ED with good response, will continue daily - 2g Na restriction, 2L fluid restriction - dietary consult - monitor renal fn and electrolytes , replete K / Mg to > 4 / 2 - hold off on cardiology c/s at this time #Acute hypoxia - wean oxygen as tolerated - should improve with diuresis #Factor V Leiden deficiency #h/o PFO #h/o stroke - pt states he is compliant with xarelto - LE duplex neg for DVT - CTA neg for PE - cont Xarelto #DM II - check A1c - hold metformin - sens sliding scale - carb controlled diet - hypoglycemic protocol ordered #h/o paroxysmal AFib - on rate controlled - monitor on tele - cont xarelto #Hyperphosphatemia - mild elevation, monitor for now #HTN #HLD - cont lisinopril and atorvastatin #Suspected JORGE L - trial of CPAP here if pt tolerates - polysomnography as outpatient #Tobacco use d/o - pt aware of cessation - pt will need outpatient PFTs to evaluate for COPD #EtOh use d/o - pt aware of cessation - monitor at this time - prn ativan ordered #DVT ppx: already on xarelto #Dispo- pending clinical improvement Admission and Anticipated Discharge Date Admission Date: June 01, 2025 Subjective Episode of hypoxia overnight requiring CPAP support He is continuing to have good urine output He states he feels less bloated and his legs feel less tight Review of Systems Review of Systems: Comprehensive ROS completed and is otherwise negative. Physical Exam Physical Exam: Gen: fatigued, sitting upright in bed HEENT: NC/AT, MMM Lungs: conversational dyspnea (improving), diminished breath sounds at the bases CVS: s1s2nl, irregular Abd: nl bowel sounds, soft, NT, protuberant abdomen, pitting edema in the lower abdomen : no forbes Ext: 3+ pitting edema b/l LE, dusky toes / cool to touch (chronic per pt) Neuro: AAOx3 Psych: cooperative though restless Results & Data Results & Data Vital Signs (Past 12 Hours) Vital Signs Temp Pulse Pulse Resp BP Pulse Ox O2 Del Method 06/02/25 04:15 100 H 18 95 06/02/25 02:49 110 H 22 92 Oxymask 06/02/25 02:13 36.8 C 97 H 18 125/79 06/01/25 22:16 Nasal Cannula O2 Flow Rate FiO2 06/02/25 04:15 50 06/02/25 02:49 2 06/02/25 02:13 06/01/25 22:16 2 PG Care Time/CCT Total # of Minutes Spent Total Time Spent with Patient: Total time spent is greater than 50% in coordination of care (as documented) at patient's floor/unit and/or counseling patient: Coding Level of Care Code 68907 SUB INP/OBS CARE 3/50MIN Diagnoses Pulmonary edema J81.1 Bilateral edema of lower extremity R60.0 Paroxysmal A-fib I48.0 Dyspnea R06.00
[2025-06-02] MEDS: RIVAROXABAN 20 MG TAB PO SCH (09:59)
--- NOTE | 2025-06-02 13:02 | XCELERA ---
[id number]
[2025-06-02] MEDS: NICOTINE 21 MG/24 HR TDSY TD SCH (13:14)
[2025-06-02] MEDS: POTASSIUM CHLORIDE CRTAB 20 MEQ TABCR PO ONE (16:41)
[2025-06-02] MEDS ORDERED: RIVAROXABAN 20 MG TAB PO SCH (17:00)
--- NOTE | 2025-06-02 18:06 | Electrocardiogram Report ---
Test Reason : Blood Pressure : */* mmHG Vent. Rate : 105 BPM Atrial Rate : * BPM P-R Int : * ms QRS Dur : 100 ms QT Int : 366 ms P-R-T Axes : * 199 57 degrees QTcB Int : 483 ms Atrial fibrillation with rapid ventricular response Right superior axis deviation Incomplete right bundle branch block Poor R wave progression, consider anterior [place] vs. lead placement vs. LVH Abnormal ECG When compared with ECG of 24-Jun-2020 11:06, Incomplete right bundle branch block is now Present Confirmed by Juan Boyd ([id number]) on 06/02/2025 6:06:06 PM Referred By: REFERRED SELF Confirmed By: Juan Boyd
[2025-06-03 05:59] LABS: Hematocrit (blood only) 44.7 % (42.0-52.0); Hemoglobin 14.0 g/dl (14.0-18.0); Immature Granulocytes # (auto) 0.01 K/uL (0.01-0.20); Immature Granulocytes % (auto) 0.2 %; Mean Corpuscular Hemoglobin 33.0 pg (25.0-34.0); Mean Corpuscular Volume 105.4 fL (80.0-100.0); Platelet Count 151 K/uL (130-400); RDW Standard Deviation 61.0 fL (36.4-46.3); Red Blood Count 4.24 M/uL (4.70-6.10); White Blood Count 5.02 K/ul (4.8-10.8)
[2025-06-03 06:21] LABS: Alanine Aminotransferase 10.0 U/L (7-52); Albumin Globulin Ratio 1.6 (0.9-2); Albumin Level 3.6 gm/dl (3.4-5.0); Alkaline Phosphatase 64.0 U/L (34-104); Anion Gap 4.0 (3-11); Bilirubin,Total 0.8 mg/dl (0.2-1.0); Blood Urea Nitrogen 15.0 mg/dl (6-23); Calcium 8.7 mg/dl (8.6-10.3); Carbon Dioxide 39.0 mmol/L (21-32); Chloride 98.0 mmol/L (98-107); Creatinine Clr Calc Pharmacy 141.4 ml/min; Globulin 2.3 gm/dl (2.5-4.0); Glucose 129.0 mg/dl (70-99(Fasting)); Magnesium 2.0 mg/dl (1.7-2.4); Potassium 4.1 mmol/L (3.5-5.1); Sodium 141.0 mmol/L (136-145); Total Protein 5.9 gm/dl (6.0-8.3)
[2025-06-03] MEDS: REMOVE NICODERM PATCH SCH (08:12)
--- NOTE | 2025-06-03 08:14 | Hospitalist Progress Note ---
Date of Service June 03, 2025 Assessment & Plan (1) Pulmonary edema: (2) Bilateral edema of lower extremity: (3) Paroxysmal A-fib: (4) Dyspnea: Plan 55 yr old M with PMHx of HTN, HLD, DMII, Factor V leiden, PFO w/ h/o stroke, smoker (1 1/2 PPD x35 yrs), weekly alcohol use (2-3 rum based mixed drinks 3 times per week), suspected JORGE L presents to [facility] ED for the evaluation of increased edema of lower extremity / abdomen. #Acute diastolic heart failure - admit to PCU - pt denies prior HF hx - BNP 234 - ECHO (06/02/25) showing EF of 50-55%, moderately dilated LA, moderately dilated IVC, RVSP 40-50mmHg - s/p Lasix 40mg IV in the ED with good response, will continue daily - 2g Na restriction, 2L fluid restriction - dietary consulted for nutritional counseling - monitor renal fn and electrolytes , replete K / Mg to > 4 / 2 - pt used to follow with Dr Lee, and would like to see cardiology while he is here , consult placed - ambulate as tolerated and elevate legs at rest #Acute hypoxia - wean oxygen as tolerated - PRN CPAP - nocturnal pulse ox study when euvolemic #Factor V Leiden deficiency #h/o PFO #h/o stroke - pt states he is compliant with xarelto - LE duplex neg for DVT - CTA neg for PE - cont Xarelto #DM II - check A1c - hold metformin - sens sliding scale - carb controlled diet - hypoglycemic protocol ordered #h/o paroxysmal AFib - on rate controlled - monitor on tele - cont xarelto #Hyperphosphatemia - mild elevation, monitor for now #HTN #HLD - cont lisinopril and atorvastatin #Suspected JORGE L - trial of CPAP here if pt tolerates - polysomnography as outpatient #Tobacco use d/o - pt aware of cessation - pt will need outpatient PFTs to evaluate for COPD #EtOh use d/o - pt aware of cessation - monitor at this time - prn ativan ordered #DVT ppx: already on xarelto #Dispo- pending clinical improvement Admission and Anticipated Discharge Date Admission Date: June 01, 2025 Subjective Overnight: Currently: he notes increased edema in his abdomen, which had improved yesterday Review of Systems Review of Systems: Comprehensive ROS completed and is otherwise negative. Physical Exam Physical Exam: Gen: no acute distress, sitting at the edge of the bed HEENT: NC/AT, MMM Lungs: no conversational dyspnea, diminished breath sounds at the bases mild crackles noted CVS: s1s2nl, irregular Abd: nl bowel sounds, soft, NT, protuberant abdomen, pitting edema in the lower abdomen : no forbes Ext: 3+ pitting edema b/l LE, dusky toes / cool to touch (chronic per pt), he had a pinpoint wound on top of his left foot, increased serous drainage today, no purulent drainage noted Neuro: AAOx3 Psych: calm, cooperative Results & Data Results & Data Vital Signs (Past 12 Hours) Vital Signs Temp Pulse Pulse Resp BP Pulse Ox O2 Del Method 06/03/25 07:19 36.2 C L 95 H 20 122/81 95 Nasal Cannula 06/03/25 02:27 36.5 C 90 18 112/77 90 Nasal Cannula 06/03/25 00:47 93 H 06/02/25 22:23 36.6 C 84 18 114/79 94 Nasal Cannula O2 Flow Rate 06/03/25 07:19 4 06/03/25 02:27 4 06/03/25 00:47 06/02/25 22:23 PG Care Time/CCT Total # of Minutes Spent Total Time Spent with Patient: Total time spent is greater than 50% in coordination of care (as documented) at patient's floor/unit and/or counseling patient: Coding Level of Care Code 27893 SUB INP/OBS CARE 3/50MIN Diagnoses Pulmonary edema J81.1 Bilateral edema of lower extremity R60.0 Paroxysmal A-fib I48.0 Dyspnea R06.00
[2025-06-03] MEDS: FUROSEMIDE 40 MG/4 ML VIAL IV SCH ×2 (08:30→17:14)
[2025-06-03] MEDS ORDERED: SODIUM CHLORIDE 0.65% NA SOLN 45 ML (OCEAN) PRN (10:11)
[2025-06-03] MEDS: CETIRIZINE HCL 10 MG TABLET PO SCH (10:30)
[2025-06-03] MEDS: guaiFENesin 600 MG TABCR PO SCH (10:31)
[2025-06-03] MEDS: FLUTICASONE PROPIONATE NA SPR 16 GM BTL SCH (11:39)
[2025-06-03] MEDS: ALBUT/IPRATROP 3MG/0.5MG NEB 3 ML VIAL NEB PRN (21:07)
[2025-06-04 06:53] LABS: Hematocrit (blood only) 45.3 % (42.0-52.0); Hemoglobin 14.6 g/dl (14.0-18.0); Mean Corpuscular Hemoglobin 33.8 pg (25.0-34.0); Mean Corpuscular Volume 104.9 fL (80.0-100.0); Platelet Count 157 K/uL (130-400); RDW Standard Deviation 60.4 fL (36.4-46.3); Red Blood Count 4.32 M/uL (4.70-6.10); White Blood Count 5.15 K/ul (4.8-10.8)
[2025-06-04 07:14] LABS: Anion Gap 4.0 (3-11); Blood Urea Nitrogen 17.0 mg/dl (6-23); Calcium 9.0 mg/dl (8.6-10.3); Carbon Dioxide 40.0 mmol/L (21-32); Chloride 94.0 mmol/L (98-107); Creatinine Clr Calc Pharmacy 137.6 ml/min; Glucose 128.0 mg/dl (70-99(Fasting)); Magnesium 2.0 mg/dl (1.7-2.4); Potassium 3.8 mmol/L (3.5-5.1); Sodium 138.0 mmol/L (136-145)
[2025-06-04] MEDS: FUROSEMIDE 40 MG/4 ML VIAL IV SCH (09:13)
--- NOTE | 2025-06-04 15:33 | Cardiology Consultation ---
Date of Consultation June 04, 2025 Assessment & Plan (1) Atrial fibrillation: (2) Dyspnea: (3) Edema: (4) Aortic root dilation: Plan 1. Edema: He presented with lower extremity and abdominal edema. He reported approximate 30 pound weight gain. Unclear if thre has been some dietary indiscretion while he was on vacation. He is affecting a good diuresis. Renal function appears to be stable. Blood pressure slightly lower this morning but now returned to normal. His degree of volume overload seems out of proportion to his cardiac function and laboratory studies. For now, we will continue diuresis and and an SGLT2 inhibitor. 2. Atrial fibrillation: Likely permanent. He has not followed up in cardiology for some time. He is known to have paroxysmal atrial fibrillation but there has been no records of sinus rhythm in some time. Overall rate control appears to be adequate. No symptoms. At some point he was transition from warfarin to Xarelto which seems appropriate. 3. Heart failure with preserved ejection fraction: As noted above will continue diuresis and start an SGLT2 inhibitor. He may also be a good candidate for spironolactone. Losing weight, monitoring sodium intake and treating untreated sleep apnea will also improve his clinical condition. 4. Mild aortic root dilation. Possibly normal when indexed to overall size. History of Present Illness Reason for Consultation: Congestive heart failure Requesting Physician: Domenic Attending Physician: Funmilayo Sheth MD History of Present Illness Patient is a 55-year-old gentleman with a remote history of a cerebellar stroke and pain foramen ovale. Also noted to have atrial fibrillation. Patient states that after a long road trip he noticed the development of significant abdominal swelling. He also had some peripheral edema. This was associated with wors ening breathing difficulty. He did not report any associated chest pain. He did not report any medication noncompliance. He did not report orthopnea. He has not had symptoms of palpitation recently. He does have some chronic dizziness and mild gait disturbance that he attributes to his stroke. Patient was discovered to have significant lower extremity and abdominal edema. He was admitted for inpatient treatment with intravenous diuretics. He has elected a good diuresis. The patient states that his abdomen is less swollen and overall he is feeling better. Activity tends to be limited by his dizziness and orthopedic problems. He does not exercise regularly. However, he generally does not have limiting dyspnea and he has not had symptoms of exertional chest discomfort. Allergies Allergy/AdvReac Type Severity Reaction Status Date / Time warfarin Allergy Intermediate DYE Verified 03/12/25 10:09 ALLERGY. USE DYE FREE WARFARIN. NO ALLERGY TO "WARFARIN" Home Medications Medication Instructions Recorded Confirmed Type aspirin 81 mg chewable tablet 81 mg PO QAM ##0 05/16/16 06/01/25 History cetirizine 10 mg tablet 10 mg PO QAM #0 tabs 05/16/16 06/01/25 History folic acid 1 mg tablet 1 mg PO QAM 90 days #90 tabs 05/16/16 06/01/25 History fluticasone propionate 50 2 spray intranasal QPM PRN 10/27/16 06/01/25 History mcg/actuation nasal Congestion ##0 spray,suspension (Flonase Allergy Relief) diphenhydramine HCl 25 mg tablet 25 mg PO QAM ##0 03/02/17 06/01/25 History acetaminophen 500 mg tablet 1,000 mg PO Q8H PRN Pain #0 tabs 10/19/17 06/01/25 History cholecalciferol (vitamin D3) 125 5,000 units PO QAM 11/22/18 06/01/25 History mcg (5,000 unit) capsule cyanocobalamin (vitamin B-12) 5,000 mcg PO QAM #0 tabs 07/18/19 06/01/25 History 1,000 mcg tablet (Vitamin B-12) blood sugar diagnostic (Bill.comTouch #100 ea 06/16/22 06/01/25 Rx Ultra Test strips) blood-glucose meter (OneTouch #1 ea 06/16/22 06/01/25 Rx Ultra2 Meter) lancets 33 gauge (OneTouch Delica #100 ea 12/22/22 06/01/25 Rx Plus Lancet) amoxicillin 500 mg tablet 2,000 mg PO UD 09/12/24 06/01/25 History lisinopril 10 mg tablet 10 mg PO QAM #90 tabs 11/05/24 06/01/25 Rx metformin 500 mg tablet 500 mg PO QAM #90 tabs 11/05/24 06/01/25 Rx atorvastatin 40 mg tablet 40 mg PO QAM #90 tabs 02/02/25 06/01/25 Rx rivaroxaban 20 mg tablet (Xarelto) 20 mg PO QAM 06/01/25 06/01/25 History Patient History Medical History Spinal cord mass Exposure to COVID-19 virus PFO (patent foramen ovale) Osteoarthritis Enlarged prostate Embolic stroke Surgical History History of esophagogastroduodenoscopy (EGD) History of total right knee replacement History of myringotomy History of colonoscopy History of sinus surgery History of hip replacement History of knee surgery Family History Father Diabetes Cancer Mother Family history of reaction to anesthesia SLOW TO WAKE UP Denies family history of Ovarian cancer Prostate cancer Myocardial infarction Breast cancer Colorectal cancer Social History Smoking Status: Current every day smoker Tobacco Type: Cigarettes Age Started Using Tobacco: 20; packs per day: 2; Cigarettes Per Day: 30; Second Hand Exposure: Yes (hx growing up); Do You Dip or Chew Tobacco: No (in the past; advised); Hx Alcohol Use: Yes Alcohol type: beer and hard liquor Alcohol Intake Frequency: 2-3 x/Week Hx Substance Use: No Preferred Language: Icelandic Communication Ability: Effective Visual Impairment: No Limitations Hearing Ability: Normal Book Author Required: No Beliefs That Will Affect Care: None marital status: Current Living Situation: Family current occupational status: employed 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 Physical Exam Physical Exam: The patient is alert and oriented. Mood and affect appeared normal. He answered all questions appropriately. HEENT: Pupils are equal and reactive to light and accommodation. Extraocular movements are intact. The sclerae are anicteric. Neuro: Cranial nerves intact Lungs: Distant breath sounds overall. Poor air movement. No rales. No expiratory wheezing. Normal respiratory effort. Cardiac: Heart demonstrates an irregular rhythm. Normal S1 and S2. No murmurs on examination. Pulses: The patient has palpable radial pulses bilaterally that are equal in intensity Extremities: There was no evidence of hypoperfusion. There is no cyanosis or clubbing. Severe lower extremity edema Skin: I did not appreciate any rashes on examination today. Results & Data Vital Signs (Past 12 Hours) Vital Signs Temp Pulse Resp BP Pulse Ox O2 Del Method O2 Flow Rate 06/04/25 15:03 36.5 C 98 H 22 121/73 96 Nasal Cannula 4 06/04/25 10:56 36.8 C 81 18 119/80 95 Nasal Cannula 4 06/04/25 09:33 Nasal Cannula 4 Laboratory Results Abnormal Lab Results 06/03/25 06/03/25 06/04/25 16:02 20:44 06:10 WBC 5.15 RBC 4.32 L Hgb 14.6 Hct 45.3 MCV 104.9 H MCH 33.8 MCHC 32.2 RDW Std Deviation 60.4 H RDW Coeff of Deb 15.4 H Plt Count 157 MPV 11.3 Sodium 138 Potassium 3.8 Chloride 94 L Carbon Dioxide 40 H Anion Gap 4 BUN 17 Creatinine 0.84 Est Cr Clr Drug Dosing 137.6 eGFR 102.99 BUN/Creatinine Ratio 20.2 H Glucose 128 H POC Glucose 97 177 H Calcium 9.0 Phosphorus 4.3 Magnesium 2.0 06/04/25 07:15 WBC RBC Hgb Hct MCV MCH MCHC RDW Std Deviation RDW Coeff of Deb Plt Count MPV Sodium Potassium Chloride Carbon Dioxide Anion Gap BUN Creatinine Est Cr Clr Drug Dosing eGFR BUN/Creatinine Ratio Glucose POC Glucose 123 H Calcium Phosphorus Magnesium Diagnostic Findings Echocardiogram 06/02/2025: Normal LV systolic function ejection fraction 50 to 55%. Mild LVH. Moderately dilated left atrium. Moderately dilated inferior vena cava. Elevated right ventricular systolic pressures. Mild aortic root dilation. PG Care Time/CCT Total # of Minutes Spent Total Time Spent with Patient: Total time spent is greater than 50% in coordination of care (as documented) at patient's floor/unit and/or counseling patient: Coding Level of Care Code 69672 IN/OBS CONSULT LVL 4,60M Diagnoses Atrial fibrillation I48.91 Dyspnea R06.00 Edema R60.9 Aortic root dilation I77.810
--- NOTE | 2025-06-04 17:28 | Hospitalist Progress Note ---
Date of Service June 04, 2025 Assessment & Plan (1) Pulmonary edema: (2) Bilateral edema of lower extremity: (3) Paroxysmal A-fib: (4) Dyspnea: Plan 55 yr old M with PMHx of HTN, HLD, DMII, Factor V leiden, PFO w/ h/o stroke, smoker (1 1/2 PPD x35 yrs), weekly alcohol use (2-3 rum based mixed drinks 3 times per week), suspected JORGE L presents to [facility] ED for the evaluation of increased edema of lower extremity / abdomen. #Acute diastolic heart failure - admit to PCU - pt denies prior HF hx - BNP 234 - ECHO (06/02/25) showing EF of 50-55%, moderately dilated LA, moderately dilated IVC, RVSP 40-50mmHg - s/p Lasix 40mg IV in the ED with good response, will continue daily - 2g Na restriction, 2L fluid restriction - dietary consulted for nutritional counseling - monitor renal fn and electrolytes , replete K / Mg to > 4 / 2 - cardiology on board, final recs pending - ambulate as tolerated and elevate legs at rest - compression stockings to assist further #Acute hypoxia - wean oxygen as tolerated - PRN CPAP - nocturnal pulse ox study when euvolemic #Factor V Leiden deficiency #h/o PFO #h/o stroke - pt states he is compliant with xarelto - LE duplex neg for DVT - CTA neg for PE - cont Xarelto #DM II - check A1c - hold metformin - sens sliding scale - carb controlled diet - hypoglycemic protocol ordered #h/o paroxysmal AFib - on rate controlled - monitor on tele - cont xarelto #Hyperphosphatemia - mild elevation, monitor for now #HTN #HLD - cont lisinopril and atorvastatin #Suspected JORGE L - trial of CPAP here if pt tolerates - polysomnography as outpatient #Tobacco use d/o - pt aware of cessation - pt will need outpatient PFTs to evaluate for COPD #EtOh use d/o - pt aware of cessation - monitor at this time - prn ativan ordered #DVT ppx: already on xarelto #Dispo- pending clinical improvement Admission and Anticipated Discharge Date Admission Date: June 01, 2025 Subjective Overnight: no acute events, hypoxic when not on oxygen Currently: reports improved abdominal edema Review of Systems Review of Systems: Comprehensive ROS completed and is otherwise negative. Physical Exam Physical Exam: Gen: no acute distress, sitting at the edge of the bed HEENT: NC/AT, MMM Lungs: no conversational dyspnea, diminished breath sounds at the bases mild crackles noted CVS: s1s2nl, irregular Abd: nl bowel sounds, soft, NT, protuberant abdomen, pitting edema in the lower abdomen improved : no forbes Ext: edema still intense, but improved appears compared to yesterday Neuro: AAOx3 Psych: calm, cooperative Results & Data Results & Data Vital Signs (Past 12 Hours) Vital Signs Temp Pulse Resp BP Pulse Ox O2 Del Method O2 Flow Rate 06/04/25 15:03 36.5 C 98 H 22 121/73 96 Nasal Cannula 4 06/04/25 10:56 36.8 C 81 18 119/80 95 Nasal Cannula 4 06/04/25 09:33 Nasal Cannula 4 PG Care Time/CCT Total # of Minutes Spent Total Time Spent with Patient: Total time spent is greater than 50% in coordination of care (as documented) at patient's floor/unit and/or counseling patient: Coding Level of Care Code 94700 SUB INP/OBS CARE 3/50MIN Diagnoses Pulmonary edema J81.1 Bilateral edema of lower extremity R60.0 Paroxysmal A-fib I48.0 Dyspnea R06.00
[2025-06-05 07:12] LABS: Anion Gap 4.0 (3-11); Blood Urea Nitrogen 17.0 mg/dl (6-23); Calcium 9.1 mg/dl (8.6-10.3); Carbon Dioxide 39.0 mmol/L (21-32); Chloride 95.0 mmol/L (98-107); Creatinine Clr Calc Pharmacy 141.0 ml/min; Glucose 116.0 mg/dl (70-99(Fasting)); Magnesium 2.2 mg/dl (1.7-2.4); Potassium 4.1 mmol/L (3.5-5.1); Sodium 138.0 mmol/L (136-145)
--- NOTE | 2025-06-05 11:09 | Cardiology Progress Note ---
Date of Service June 05, 2025 Assessment & Plan (1) Atrial fibrillation: (2) Dyspnea: (3) Edema: (4) Aortic root dilation: Plan 1. Edema: He presented with lower extremity and abdominal edema. Improved. He may have element of heart failure with preserved ejection fraction, but his degree of edema seems out of proportion to overall ventricular function. I would be concerned about additional etiologies for significant edema. 2. Atrial fibrillation: Likely permanent. Continue current medical regimen including systemic anticoagulation. 3. Heart failure with preserved ejection fraction: Will continue diuresis. I will start him on an SGLT2 inhibitor. 4. Mild aortic root dilation. Possibly normal when indexed to overall size. Admission and Anticipated Discharge Date Admission Date: June 01, 2025 Subjective This morning patient clinically feeling better. He states that his breathing is essentially back to normal. He was amatory around his room without significant dyspnea. Nursing reports significant desaturations and increased oxygen requirements overnight. No new dizziness or lightheadedness (chronic dizziness from his cerebellar infarct). No sense of palpitation. Tolerating lower extremity compression stockings Review of Systems Review of Systems: Per HPI. Physical Exam Physical Exam: The patient is alert and oriented. Mood and affect appeared normal. He answered all questions appropriately. Using supplemental oxygen HEENT: Pupils are equal and reactive to light and accommodation. Extraocular movements are intact. The sclerae are anicteric. Neuro: Cranial nerves intact Lungs: Distant breath sounds with poor air movement. No rales. Normal respiratory effort. Cardiac: Heart demonstrates an irregular rhythm. Normal S1 and S2. No murmurs on examination. Pulses: The patient has palpable radial pulses bilaterally that are equal in intensity Extremities: There was no evidence of hypoperfusion. There is no cyanosis or clubbing. Severe lower extremity edema. Currently wearing compression stockings. Skin: I did not appreciate any rashes on examination today. Results & Data Vital Signs (Past 12 Hours) Vital Signs Temp Pulse Pulse Resp BP Pulse Ox O2 Del Method 06/05/25 09:27 Nasal Cannula 06/05/25 07:06 36.5 C 62 19 111/73 96 Nasal Cannula 06/05/25 03:01 36.5 C 84 18 93/60 L 94 Oxymask 06/05/25 00:09 84 O2 Flow Rate 06/05/25 09:27 4 06/05/25 07:06 5 06/05/25 03:01 5 06/05/25 00:09 Laboratory Results Abnormal Lab Results 06/04/25 06/04/25 06/05/25 16:16 20:20 06:19 Sodium 138 Potassium 4.1 Chloride 95 L Carbon Dioxide 39 H Anion Gap 4 BUN 17 Creatinine 0.82 Est Cr Clr Drug Dosing 141.0 eGFR 103.74 BUN/Creatinine Ratio 20.7 H Glucose 116 H POC Glucose 87 152 H Calcium 9.1 Phosphorus 4.2 Magnesium 2.2 06/05/25 07:05 Sodium Potassium Chloride Carbon Dioxide Anion Gap BUN Creatinine Est Cr Clr Drug Dosing eGFR BUN/Creatinine Ratio Glucose POC Glucose 122 H Calcium Phosphorus Magnesium PG Care Time/CCT Total # of Minutes Spent Total Time Spent with Patient: Total time spent is greater than 50% in coordination of care (as documented) at patient's floor/unit and/or counseling patient: Coding Level of Care Code 48828 SUB INP/OBS CARE 2/35MIN Diagnoses Atrial fibrillation I48.91 Dyspnea R06.00 Edema R60.9 Aortic root dilation I77.810
[2025-06-05] MEDS: EMPAGLIFLOZIN 10 MG TAB PO SCH (11:55)
[2025-06-05] MEDS: DOCUSATE SODIUM/SENNA 50/8.6MG TAB PO SCH (14:50)
[2025-06-05] MEDS: POLYETHYLENE (MIRALAX) 17 GM PACK PO ONE (14:50)
--- NOTE | 2025-06-05 15:01 | Ultrasound Report ---
US liver CLINICAL HISTORY: increased edema COMPARISON STUDY: None FINDINGS: Pancreatic head and tail are obscured by bowel gas. Visualized portion of the pancreatic remberto dy is grossly unremarkable. Liver is unremarkable measuring 19 cm. There is normal direction of flow in the portal vein. Gallbladder is unremarkable with no gallstones or gallbladder wall thickening. No pericholecystic fluid or ascites. Common bile duct measures normal diameter of 5 mm. Right kidney sh ows no hydronephrosis. IMPRESSION: Unremarkable exam. ACT 112: Negative or not required by law. Electronically signed by: Ryan Gandhi M.D. 06/05/2025 2:59 PM
[2025-06-05] MEDS: COUGH DROP (SUGAR FREE) LOZ 24 LOZ/1 BOX BUCCAL PRN (18:21)
--- NOTE | 2025-06-05 20:32 | Hospitalist Progress Note ---
Date of Service June 05, 2025 Assessment & Plan (1) Pulmonary edema: (2) Bilateral edema of lower extremity: (3) Paroxysmal A-fib: (4) Dyspnea: Plan 55 yr old M with PMHx of HTN, HLD, DMII, Factor V leiden, PFO w/ h/o stroke, smoker (1 1/2 PPD x35 yrs), weekly alcohol use (2-3 rum based mixed drinks 3 times per week), suspected JORGE L presents to [facility] ED for the evaluation of increased edema of lower extremity / abdomen. #Acute diastolic heart failure - admit to PCU - pt denies prior HF hx - BNP 234 - ECHO (06/02/25) showing EF of 50-55%, moderately dilated LA, moderately dilated IVC, RVSP 40-50mmHg - s/p Lasix 40mg IV in the ED with good response, will continue daily - 2g Na restriction, 2L fluid restriction - dietary consulted for nutritional counseling - monitor renal fn and electrolytes , replete K / Mg to > 4 / 2 - cardiology on board, final recs pending - ambulate as tolerated and elevate legs at rest - compression stockings to assist further - pt did not want to take Jardiance as he was on it in the past and he reports UTI and pyelonephritis - RUQ US unremarkable #Acute hypoxia - wean oxygen as tolerated - PRN CPAP - check nocturnal pulse ox study tonight #Factor V Leiden deficiency #h/o PFO #h/o stroke - pt states he is compliant with xarelto - LE duplex neg for DVT - CTA neg for PE - cont Xarelto #DM II - check A1c - hold metformin - sens sliding scale - carb controlled diet - hypoglycemic protocol ordered #h/o paroxysmal AFib - on rate controlled - monitor on tele - cont xarelto #Hyperphosphatemia - mild elevation, monitor for now #HTN #HLD - cont lisinopril and atorvastatin #Suspected JORGE L - trial of CPAP here if pt tolerates - polysomnography as outpatient #Tobacco use d/o - pt aware of cessation - pt will need outpatient PFTs to evaluate for COPD #EtOh use d/o - pt aware of cessation - monitor at this time - prn ativan ordered #DVT ppx: already on xarelto #Dispo- pending clinical improvement Admission and Anticipated Discharge Date Admission Date: June 01, 2025 Subjective No acute events overnight Still hypoxic in his sleep Desat today with ambulation to low 80s on RA Review of Systems Review of Systems: Comprehensive ROS completed and is otherwise negative. Physical Exam Physical Exam: Gen: no acute distress, sitting at the edge of the bed HEENT: NC/AT, MMM Lungs: no conversational dyspnea, diminished breath sounds, no wheezing CVS: s1s2nl, irregular Abd: nl bowel sounds, soft, NT, protuberant abdomen, pitting edema in the lower abdomen improved : no forbes Ext: edema improving with compression stockings but still has quite a bit of swelling Neuro: AAOx3 Psych: calm, cooperative Results & Data Results & Data Vital Signs (Past 12 Hours) Vital Signs Temp Pulse Resp BP Pulse Ox Pulse Ox O2 Del Method 06/05/25 19:00 94 06/05/25 17:52 82 L Room Air 06/05/25 16:33 36.9 C 84 19 148/74 H 97 Room Air 06/05/25 15:13 36.3 C L 76 19 107/75 95 Nasal Cannula 06/05/25 11:21 36.4 C L 77 19 109/77 95 Nasal Cannula 06/05/25 09:27 Nasal Cannula O2 Del Method O2 Flow Rate O2 Flow Rate 06/05/25 19:00 Nasal Cannula 1 06/05/25 17:52 06/05/25 16:33 06/05/25 15:13 3 06/05/25 11:21 3 06/05/25 09:27 4 PG Care Time/CCT Total # of Minutes Spent Total Time Spent with Patient: Total time spent is greater than 50% in coordination of care (as documented) at patient's floor/unit and/or counseling patient: Coding Level of Care Code 97637 SUB INP/OBS CARE 3/50MIN Diagnoses Pulmonary edema J81.1 Bilateral edema of lower extremity R60.0 Paroxysmal A-fib I48.0 Dyspnea R06.00
[2025-06-06 07:51] LABS: Anion Gap 6.0 (3-11); Blood Urea Nitrogen 17.0 mg/dl (6-23); Calcium 9.5 mg/dl (8.6-10.3); Carbon Dioxide 37.0 mmol/L (21-32); Chloride 94.0 mmol/L (98-107); Creatinine Clr Calc Pharmacy 143.3 ml/min; Glucose 125.0 mg/dl (70-99(Fasting)); Magnesium 2.1 mg/dl (1.7-2.4); Potassium 4.4 mmol/L (3.5-5.1); Sodium 137.0 mmol/L (136-145)
--- NOTE | 2025-06-06 08:03 | Hospitalist Progress Note ---
Date of Service June 06, 2025 Assessment & Plan (1) Pulmonary edema: (2) Bilateral edema of lower extremity: (3) Paroxysmal A-fib: (4) Dyspnea: Plan 55 yr old M with PMHx of HTN, HLD, DMII, Factor V leiden, PFO w/ h/o stroke, smoker (1 1/2 PPD x35 yrs), weekly alcohol use (2-3 rum based mixed drinks 3 times per week), suspected JORGE L presents to [facility] ED for the evaluation of increased edema of lower extremity / abdomen. #Acute diastolic heart failure - admit to PCU - pt denies prior HF hx - BNP 234 - ECHO (06/02/25) showing EF of 50-55%, moderately dilated LA, moderately dilated IVC, RVSP 40-50mmHg - s/p Lasix 40mg IV in the ED with good response, will continue daily - 2g Na restriction, 2L fluid restriction - dietary consulted for nutritional counseling - monitor renal fn and electrolytes , replete K / Mg to > 4 / 2 - cardiology on board, recs appreciated - ambulate as tolerated and elevate legs at rest - compression stockings to assist further - pt did not want to take Jardiance as he was on it in the past and he reports UTI and pyelonephritis - RUQ US unremarkable #Acute hypoxia - wean oxygen as tolerated - PRN CPAP - check nocturnal pulse ox study tonight on RA #Factor V Leiden deficiency #h/o PFO #h/o stroke - pt states he is compliant with xarelto - LE duplex neg for DVT - CTA neg for PE - cont Xarelto #DM II - check A1c - hold metformin - sens sliding scale - carb controlled diet - hypoglycemic protocol ordered #h/o paroxysmal AFib - on rate controlled - monitor on tele - cont xarelto #Hyperphosphatemia - mild elevation, monitor for now #HTN #HLD - cont lisinopril and atorvastatin #Suspected JORGE L - trial of CPAP here if pt tolerates - polysomnography as outpatient #Tobacco use d/o - pt aware of cessation - pt will need outpatient PFTs to evaluate for COPD #EtOh use d/o - pt aware of cessation - no withdrawal symptoms since admission - will d/c withdrawal protocol, ativan #DVT ppx: already on xarelto #Dispo- pending clinical improvement Admission and Anticipated Discharge Date Admission Date: June 01, 2025 Subjective No acute events overnight Still hypoxic currently no new complaints Review of Systems Review of Systems: Comprehensive ROS completed and is otherwise negative. Physical Exam Physical Exam: Gen: no acute distress, sitting at the edge of the bed HEENT: NC/AT, MMM Lungs: no conversational dyspnea, diminished breath sounds, no wheezing CVS: s1s2nl, irregular Abd: nl bowel sounds, soft, NT, protuberant abdomen, pitting edema in the lower abdomen improved : no forbes Ext: edema improving with compression stockings but still has quite a bit of swelling Neuro: AAOx3 Psych: calm, cooperative Results & Data Results & Data Vital Signs (Past 12 Hours) Vital Signs Temp Pulse Pulse Resp BP Pulse Ox Pulse Ox 06/06/25 07:46 36.7 C 87 19 117/70 96 06/06/25 03:54 36.7 C 88 18 115/72 95 06/05/25 22:39 36.4 C L 86 18 126/72 99 06/05/25 22:09 85 94 06/05/25 21:42 O2 Del Method O2 Del Method O2 Flow Rate O2 Flow Rate 06/06/25 07:46 Nasal Cannula 2 06/06/25 03:54 Nasal Cannula 4 06/05/25 22:39 Nasal Cannula 1 06/05/25 22:09 Nasal Cannula 4 06/05/25 21:42 Nasal Cannula 1 PG Care Time/CCT Total # of Minutes Spent Total Time Spent with Patient: Total time spent is greater than 50% in coordination of care (as documented) at patient's floor/unit and/or counseling patient: Coding Level of Care Code 82802 SUB INP/OBS CARE 3/50MIN Diagnoses Pulmonary edema J81.1 Bilateral edema of lower extremity R60.0 Paroxysmal A-fib I48.0 Dyspnea R06.00
[2025-06-06] MEDS ORDERED: POLYETHYLENE (MIRALAX) 17 GM PACK PO PRN (09:00)
[2025-06-06] MEDS: POLYETHYLENE (MIRALAX) 17 GM PACK PO PRN (16:44)
[2025-06-06] MEDS ORDERED: METOPROLOL TARTRATE 25 MG TAB PO SCH (17:00)
[2025-06-06] MEDS: METOPROLOL TARTRATE 25 MG TAB PO SCH (17:11)
[2025-06-07] MEDS: COUGH DROP (SUGAR FREE) LOZ 24 LOZ/1 BOX BUCCAL PRN (05:16)
[2025-06-07 11:12] VITALS: BP 116/83; TEMP 97.9
--- NOTE | 2025-06-07 13:41 | Discharge Summary ---
Discharge Summary Date of Service June 07, 2025 Principal Dx & Hospital Course #1 = Principal Diagnosis (1) Pulmonary edema: (2) Bilateral edema of lower extremity: (3) Paroxysmal A-fib: (4) Dyspnea: Plan 55 yr old M with PMHx of HTN, HLD, DMII, Factor V leiden, PFO w/ h/o stroke, smoker (1 1/2 PPD x35 yrs), weekly alcohol use (2-3 rum based mixed drinks 3 times per week), suspected JORGE L presents to [facility] for the evaluation of increased edema of lower extremity / abdomen. ECHO showed elevated right sided pressures and IVC dilation. EF 50-55%. Pt tolerated diuresis. Rpt ECHO showed improved right sided pressures. Nocturnal pulse ox study did not qualify him for oxygen. 2-step done and he did not require supplemental oxygen. He will continue 2g Na / 2L fluid restriction. He is to continue compression stockings. He will need to follow up with pulm for sleep study and further evaluation of COPD / emphysema. He is instructed to quit smoking and drinking. He will return to work after cleared by cardiology. #Acute diastolic heart failure - admit to PCU - pt denies prior HF hx - BNP 234 - ECHO (06/02/25) showing EF of 50-55%, moderately dilated LA, moderately dilated IVC, RVSP 40-50mmHg - s/p Lasix 40mg IV in the ED with good response, will continue daily - 2g Na restriction, 2L fluid restriction - dietary consulted for nutritional counseling - monitor renal fn and electrolytes , replete K / Mg to > 4 / 2 - cardiology on board, recs appreciated - ambulate as tolerated and elevate legs at rest - compression stockings to assist further - pt did not want to take Jardiance as he was on it in the past and he reports UTI and pyelonephritis - RUQ US unremarkable - limited ECHO (06/07): right sided pressures and IVC much improved #Acute hypoxia - resolved - completed nocturnal pulse ox study on RA, pt did not qualify for oxygen - 2-step completed, pt does not need any oxygen #Factor V Leiden deficiency #h/o PFO #h/o stroke - pt states he is compliant with xarelto - LE duplex neg for DVT - CTA neg for PE - cont Xarelto #DM II - A1c: 6.9 (06/02/25) - resume metformin #h/o paroxysmal AFib - started on metoprolol xl 25mg po daily - cont xarelto #Hyperphosphatemia - resolved #HTN #HLD - cont lisinopril and atorvastatin - added metoprolol las above #Suspected JORGE L - trial of CPAP here if pt tolerates - polysomnography as outpatient #Tobacco use d/o #Suspected - pt aware of cessation - follow up with pulm for outpatient PFTs and further management of COPD / emphysema #EtOh use d/o - pt aware of cessation - no withdrawal symptoms since admission #Dispo- discharge home Admission HPI Per Admitting Provider 55 yr old M with PMHx of HTN, HLD, DMII, Factor V leiden, PFO w/ h/o stroke, smo ker (1 09/04 PPD x35 yrs), weekly alcohol use (2-3 rum based mixed drinks 3 times per week), suspected JORGE L presents to [facility] for the evaluation of increased edema of lower extremity / abdomen. Pt notes that this started about 2 weeks ago. He drove to vacation at [place] ([address]). He stopped twice to walk around due to Factor V Leiden deficiency. Once he got to his destination, he states that his ankles were swollen. He is not sure how the edema progressed while he was there, but once he got home (05/28/25), he noticed that it has gotten to his lower abdomen. He also noticed that he had increased DAVEY, as well as conversational dyspnea. He was hoping that with movement, his edema would improve. However, since it didn't, he came to the hospital. He also noted abdominal bloating. However, denied chest pain, palpitations, dizziness, N/V. Discharge Exam Gen: no acute distress, sitting at the edge of the bed HEENT: NC/AT, MMM Lungs: no conversational dyspnea, diminished breath sounds, no wheezing CVS: s1s2nl, irregular Abd: nl bowel sounds, soft, NT, protuberant abdomen, pitting edema in the lower abdomen improved : no forbes Ext: edema improving with compression stockings but still has quite a bit of swelling Neuro: AAOx3 Psych: calm, cooperative Discharge Plan Discharge Items Patient Disposition: Home - Self-Care Reason For Visit: VOLUME OVERLOAD Discharge Diagnosis: Diastolic heart failure exacerbation Condition on Discharge: Fair Activity: Resume your previous activity Non-emergency contact: Primary Care Provider and Medical Receptionist Assistant Call non-emergency contact if: you have any medication questions and your symptoms worsen Follow-up/Referrals: [facility] [Provider Group] [facility] [Provider Group] Anibal Lee MD [Physician] - Jovany Fink DO [Primary Care Provider] - Diet: Low Sodium (2gm) Fluids: 2000ml (8 cups) Addtl Attending Provider Instructions: You were admitted to the hospital for the evaluation of volume overload. You were diagnosed with diastolic heart failure exacerbation. You were given medications to remove excess fluid from your body. You were need to follow strict 2 gram sodium restriction and 2 liter fluid restriction per day. You will need to weigh your body daily in the morning after you have emptied your bladder but before you eat or drink. You are also started on a new blood pressure medication Metoprolol. This will help you control your heart rate in the setting of atrial fibrillation. You have tolerated this medication during your stay in the hospital. Please monitor your blood pressure and heart rate at home. You need to follow up with cardiology in about 7 to 10 days. You are also thought to have sleep apnea. You need an outpatient sleep study. You also need to follow up with pulmonology to evaluate your COPD / emphysema in detail. ENT referral given for chronic nasal congestion. You can return to work after cleared by training technician. You are medically stable for discharge. You will need to follow up with your primary care doctor in about 7 to 10 days. It was a pleasure being a part of your medical care team during your stay at [facility]. Pending Studies at Discharge: No Stand-Alone Forms: My [facility], Work/School Release, Smoking Cessation Medications and DC Order Prescriptions: New guaifenesin [Mucinex] 600 mg Tablet Extended Release 12hr 600 mg PO BID Qty: 60 0RF metoprolol succinate 25 mg tablet extended release 24 hr 25 mg PO DAILY Qty: 30 0RF furosemide 40 mg tablet 40 mg PO DAILY Qty: 30 0RF Continued cholecalciferol (vitamin D3) 5,000 unit capsule 5,000 units PO QAM cetirizine 10 mg Tablet 10 mg PO QAM Qty: 0 aspirin 81 mg Tablet,Chewable 81 mg PO QAM Qty: 0 folic acid 1 mg Tablet 1 mg PO QAM 90 Days Qty: 90 fluticasone propionate [Flonase Allergy Relief] 50 mcg/actuation [place],Suspension 2 spray INTRANASAL QPM PRN (Reason: Congestion) Qty: 0 diphenhydramine HCl 25 mg Tablet 25 mg PO QAM Qty: 0 Patient Comments: takes 25 - 50 mg Rx Instructions: TAKES 25-50MG acetaminophen 500 mg Tablet 1,000 mg PO Q8H PRN (Reason: Pain) Qty: 0 cyanocobalamin (vitamin B-12) [Vitamin B-12] 1,000 mcg tablet 5,000 mcg PO QAM Qty: 0 metformin 500 mg tablet 500 mg PO QAM Qty: 90 3RF lisinopril 10 mg tablet 10 mg PO QAM Qty: 90 3RF atorvastatin 40 mg tablet 40 mg PO QAM Qty: 90 2RF (DME) lancets [OneTouch Delica Plus Lancet] 33 gauge misc See Rx Instructions .Route Qty: 100 3RF Rx Instructions: As directed AC and bedtime PRN E11.9 (DME) blood-glucose meter [OneTouch Ultra2 Meter] Misc See Rx Instructions .Route Qty: 1 0RF Rx Instructions: As directed (DME) OneTouch Ultra Test Strip See Rx Instructions .Route Qty: 100 5RF Rx Instructions: AC and HS and prn amoxicillin 500 mg tablet 2,000 mg PO UD Rx Instructions: 4 tabs 1 hour prior to procedure Xarelto 20 mg tablet 20 mg PO QAM Discharge Orders: Discharge Order (Routine); Ordered 06/07/25 Ordered By: Funmilayo Kessler/Other Patient Handouts: COPD Diabetes, Heart Failure Meds, What Is Heart Failure, Heart Failure Flare Up Signs, Heart Failure: Tracking Your Weight, High Blood Sugar (Hyperglycemia), Hypoglycemia (Low Blood Sugar), Managing Type 2 Di abetes, How to Check Your Blood Sugar, Coping with Heart Failure Admission Data Admit Date/Time: 06/01/25 18:07 Attending Provider: Funmilayo Sheth Admit Provider: Funmilayo Sheth Primary Care Provider: Jovany Fink Other Providers: Funmilayo Sheth; Juan Boyd Hospital Stay Data Consultations 06/01/25 17:41 ED Decision to Admit Stat 06/03/25 16:53 Consult Cardiology Routine Diagnostic Imagining Performed 06/01/25 15:36 CT angio chest PE protocol Stat 06/01/25 18:07 US venous duplex leg [US venous doppler LE BI] Stat 06/05/25 10:44 US liver Urgent Pending Results Patient Have Any Pending Studies at Discharge: No Discharge Instructions Given to Patient (Per Discharging Provider) You were admitted to the hospital for the evaluation of volume overload. You were diagnosed with diastolic heart failure exacerbation. You were given medications to remove excess fluid from your body. You were need to follow strict 2 gram sodium restriction and 2 liter fluid restriction per day. You will need to weigh your body daily in the morning after you have emptied your bladder but before you eat or drink. You are also started on a new blood pressure medication Metoprolol. This will help you control your heart rate in the setting of atrial fibrillation. You have tolerated this medication during your stay in the hospital. Please monitor your blood pressure and heart rate at home. You need to follow up with cardiology in about 7 to 10 days. You are also thought to have sleep apnea. You need an outpatient sleep study. You also need to follow up with pulmonology to evaluate your COPD / emphysema in detail. ENT referral given for chronic nasal congestion. You can return to work after cleared by training technician. You are medically stable for discharge. You will need to follow up with your primary care doctor in about 7 to 10 days. It was a pleasure being a part of your medical care team during your stay at [facility]. Total Time Total Time Spent Total Time Spent (In Minutes): 45 Coding Level of Care Code 55538 INP/OBS DISCH >30 MIN Diagnoses Pulmonary edema J81.1 Bilateral edema of lower extremity R60.0 Paroxysmal A-fib I48.0 Dyspnea R06.00
[2025-06-07 13:42] VITALS: PULSE 84; RESP 20; O2SAT 93
== END 2025-06-07 14:18 | disposition home or self-care (01) | DRG 291 ==
LOC: ED 13:32 → EDINP 18:07 → 2S 21:56